=== PATIENT | female | born 1955 | race Caucasian/White ===

== ENCOUNTER 2018-09-20 17:28 | Observation (INO) ==
[2018-09-20] MEDS ORDERED: Naloxone 0.4 MG/ML INJ IVP PRN (17:50)
--- NOTE | 2018-09-20 17:50 | Internal Med History&Physical ---
Addendum entered and electronically signed by Terrence Barber DO 09/20/18 19:05: A/p 8) DM2 Poorly controlled DM2, Glucoses 250-300 fasting per patient history We will hold PO home meds SSI Original Note: <TommiesandroJennifer Campbell - Last Filed: 09/20/18 18:04> Date of Encounter: 09/20/18 Internal Medicine - H&P: HPI History of present illness: Ms. Moreno is a 62 year old female Internal Medicine - H&P: Meds Clopidogrel [Plavix] 75 mg PO DAILY 02/28/16 [History] Levothyroxine [Synthroid] 100 mcg PO DAILY 02/28/16 [History] Rivaroxaban [Xarelto] 20 mg PO DAILY 02/28/16 [History] clonazePAM [Klonopin] 2 mg PO BID PRN 02/28/16 [History] Aspirin 81 mg PO DAILY 03/06/16 [History] Nitroglycerin 0.4 mg PO Q5M PRN 03/06/16 [History] Omeprazole [PriLOSEC] 40 mg PO DAILY@0630 #30 capsule.dr 03/07/16 [Rx] Metoprolol [Lopressor] 25 mg PO BID #60 tablet 07/08/16 [Rx] DULoxetine [Cymbalta] 20 mg PO DAILY 09/17/17 [History] HYDROcodone/Acet 5/325 mg [[place] 5-325 mg] 1 tab PO Q8H PRN 09/17/17 [History] Glimepiride [Amaryl] 1 mg PO DAILY 01/11/18 [History] Isosorbide MONOnitrate (24 HR) [Imdur] 30 mg PO DAILY 01/11/18 [History] Losartan [Cozaar] 25 mg PO DAILY 01/11/18 [History] Allergy/AdvReac Type Severity Reaction Status Date / Time Amoxicillin [From Augmentin] AdvReac Nausea Verified 09/17/17 07:56 clavulanic acid AdvReac Nausea Verified 09/17/17 07:56 [From Augmentin] Sulfa (Sulfonamide AdvReac Nausea Verified 01/11/18 06:45 Antibiotics) trimethoprim [From Bactrim] AdvReac Nausea Verified 09/14/17 12:05 All Systems PM: A 10-system review of systems was performed and is negative for pertinent findings except as documented above in the HPI. - Time Spent With Patient Total time spent is greater than 50% in coordination of care (as documented) at patient's floor/unit and/or counseling patient: - Attending Attestation I examined this patient and my medical decision-making was reviewed with the Resident Physician. I agree with the documented findings, disposition and t reatment plan as described except to the extent set forth below. <Terrence Barber - Last Filed: 09/20/18 18:52> Date of Encounter: 09/20/18 Time of Encounter: 17:50 Internal Medicine - H&P: HPI Chief complaint: Dizziness and chest tightness Admitted From: Direct Admit Plans for Post Hospital Care: Home History of present illness: Ms. Moreno is a 62 year old female with history of CAD status post left heart catheterization with PCI/stent 02/23, diabetes mellitus type 2 which is poorly controlled, hyperlipidemia, morbid obesity, depression and anxiety who was seen by myself (Dr. Barber) and outpatient clinic setting for routine follow-up for chronic conditions today. It was first noted that the patient was not herself w hen she was escorted back to a room in a wheelchair despite usually being able to walk unassisted 2 rooms. The patient was complaining of increased weakness, fatigue and chest tightness with radiation to the back as well as dizziness which started several days ago. She says all in all this has been going on for approximately 3-4 days, however she has been increasingly more fatigued over the past several weeks. She says that she does not specifically have a chest pain, however there is a central substernal tightness, which does radiate somewhat towards her back and it is similar and feeling to previous heart attacks that she has had. It is associated with some shortness of breath with activity, as well as some rapid heart rate and palpitations. She has had no diaphoresis, and she has had no nausea or vomiting. She does mention that her home health nurse mention today that her blood pressure was fine but her heart rate was relatively fast, and overall she just does not feel like herself. When asked, she said that she is concerned that something may be going on in that she is having symptoms which may suggest that her heart is having problems. She denied orthopnea, PND, increased edema in her lower extremities. She also denied cough with sputum production. She has no recent illness to speak of. In addition of this, the patient does say that she has some dizziness and lig htheadedness upon standing which is somewhat new. This is not related to sitting or lying down, but is most specifically related to standing up. She has not had anything resembling passing out, and her her knowledge she has not loss consciousness. She has had no falls associated with this. She does not have any losses of consciousness, or focal muscle weakness or cognitive issues associated with this to her knowledge. When asked if she felt comfortable going home, the patient stated that she did not think that she felt safe going home, and that she thought she needed more inpatient workup. At that time I decided to direct admit the patient for workup of cardiac concerns and near syncope. Past Med Surg Social Fam HX - Past Medical History Medical history: coronary artery disease, DVT, diabetes, fibromyalgia, GERD, hyp erlipidemia, hypertension, myocardial infarction, thyroid disease Additional medical history: DDD. PSORIASIS Psychiatric history: anxiety, depression, panic disorder - Past Surgical History Surgical History: angioplasty/stent, , hysterectomy, orthopedic, other, IVC filter Additional surgical history: CERVICAL SPINE SURGERY x2, IVC FILTER - Social History Smoking Status: Former smoker Smokeless Tobacco Status: No Alcohol use: rarely Drug use: none - Family History Father Living Status: Hx Family Cardiac Disorders: Yes Hx Family Respiratory Disorders: No Hx Family Cancer: Yes Hx Family GI Disorders: Yes Hx Family Endocrine Disorder: Yes Hx Family Autoimmune Disorders: Yes All Systems PM: A 10-system review of systems was performed and is negative for pertinent findings except as documented above in the HPI. Review of systems: Constitutional: Denies fevers, chills, weight loss. Admits to generalized fatigue Head/Neck: Denies INMAN, neck stiffness EENT: Denies vision changes/blurriness, rhinorrhea, congestion, sore throat CVS: Admits to Chest tightness with radiation to back, VARELA. Denies orthopnea, PND Pulm: Denies cough, sputum, hemoptysis, wheezing GI: Denies abdominal pain, nausea, vomiting, diarrhea, constipation, melena, hematemasis : Denies dysuria, urgency, hematuria. Admits to polyuria Heme: Denies ease of bleeding or bruising MSK: Denies joint pain, limited ROM Skin: Denies rashes, ulcers, color changes Endo: Admits to polydipsia and polyuria Neuro: Denies INMAN, paresthesias, focal deficits, ataxia - Constitutional Exam: Gen: Vitals noted. No acute distress. Patient is unsteady upon standing Eyes: anicteric sclerae, moist conjunctivae; no lid-lag; Pupils equal and reactive to light HENT: Atraumatic; oropharynx clear with moist mucous membranes and no mucosal ulcerations; normal hard and soft palate Neck: Trachea midline; supple, no thyromegaly or lymphadenopathy Cardiac: RRR, no murmur, +S1/S2 Pulmonary: CTA bilaterally, no wheezes, rales or rhonchi, equal chest expansion Abdomen: soft, nontender, no guarding. No masses or hepatosplenomegaly MSK: ROM intact, no joint swelling noted Extremities: 1+ BLE edema, nontender calf, no cyanosis or clubbing Skin: Normal temperature, turgor and texture; no rash, ulcers or subcutaneous nodules Neuro: as listed below Psych: Appropriate mood and behavior. A&Ox3 - Neurological Exam Neurological exam: Present: alert, CN II-XII intact, oriented X3, reflexes norm al, no focal deficits, strengths equal and symetr throughout. Absent: motor sensory deficit, pronater drift, facial droop, speech deficit Internal Med - H&P Results - Labs CBC & Chem 7: 09/20/18 18:19 - EKG Data -: EKG Interpreted by Myself (QTc 411, NV 176, QRS 94) EKG shows normal: sinus rhythm, axis (normal), intervals, ST-T waves (Nonspecific ST-T wave changes in lateral leads ) Rate: normal - EKG Data Prior EKG available for review: yes When compared to previous EKG: there is no significant change Interpretation IM: normal EKG - Assessment and Plan (1) Chest pain Current Visit: Yes Status: Acute Assessment and plan: Atypical chest pain, mild. Exertional dyspnea Patient is experiencing chest tightness with radiation to back, Heart score 5 EKG in office demonstrates sinus rhythm with no acute ischemic changes History of CAD, [facility] 02/23 70-80% stenosis in the Distal RCA; 50-60% stenosis in the Mid Circumflex. S/p DENNY to distal RCA Echo 02/21 shows LVEF 50% with essentially normal valvular function Plan Admit to Tele CBC, Trend Trop x3 CXR, Echocardiogram, EKG in AM Consider PE unlikely with hx of Xarelto, however will check d-dimer and consider CTA Chest Consider cardiology consultation for abnormal results if found Qualifiers: Chest pain type: precordial pain Qualified Code(s): R07.2 - Precordial pain (2) Dizziness Current Visit: Yes Status: Acute Assessment and plan: Dizziness vs Near syncope which may be orthostatic Unclear etiology, possibly secondary to orthostatic hypotennsion in setting of volume depletion Patient does report lightheadedness with sitting to standing posture. No other symptoms Neurological exam is unremakable Plan for Echocardiogram, carotid dopplers No head CT indicated as exam non-focal Consider CTA Chest if positive d-dimer (3) Volume depletion Current Visit: Yes Status: Acute Assessment and plan: Suspected volume depletion Will bolus 1L LR,, then give 75mL/hr LR IVF overnight (4) Hypertension Current Visit: Yes Status: Acute Assessment and plan: Patient was hypotensive in clinic and symptomatic, BP 98/68 Home BP meds include Losartan, Lopressor and Imdur Will hold imdur at this time, monitor BP Qualifiers: Hypertension type: essential hypertension Qualified Code(s): I10 - Esse ntial (primary) hypertension (5) CAD (coronary artery disease) Current Visit: No Status: Chronic Assessment and plan: CAD as above Patient with history of stents, most recently in 02/23 Continue ASA, Plavix, Losartan, Lopressor Qualifiers: Coronary Disease-Associated Artery/Lesion type: [place] artery [place] vs. transplanted heart: [place] heart Associated angina: without angina Qualified Code(s): I25.10 - Atherosclerotic heart disease of [place] coronary artery without angina pectoris (6) Hypothyroidism Current Visit: No Status: Acute Assessment and plan: Will check TSH Continue home synthroid Qualifiers: Hypothyroidism type: unspecified Qualified Code(s): E03.9 - Hypothyroidism, unspecified (7) History of DVT (deep vein thrombosis) Current Visit: No Status: Acute Assessment and plan: History of DVTs, continue Xarelto Check D-dimer, if positive consider CTA Chest - Time Spent With Patient Total time spent is greater than 50% in coordination of care (as documented) at patient's floor/unit and/or counseling patient:
[2018-09-20] MEDS ORDERED: Aspirin 325 MG TABLET PO ONE (17:56)
[2018-09-20] MEDS ORDERED: *HR* HYDROcodone/Acet 5/325 mg TABLET PO PRN (17:59)
[2018-09-20] MEDS ORDERED: D5% in Water 1,000 ML IVC PRN (18:02)
[2018-09-20] MEDS ORDERED: *HR* Dextrose 50 % in Water (Syg) 50 ML SYRINGE IVP PRN (18:02)
[2018-09-20] MEDS ORDERED: Dextrose Gel 15 GM/37.5 ML TUBE PO PRN ×2 (18:02)
[2018-09-20 18:33] LABS: Basophils % 0.3 %; Eosinophils # 0.1 K/mcL (0.0-0.6); Eosinophils % 1.2 %; Hematocrit 41.6 % (35.3-44.9); Hemoglobin 14.4 g/dL (11.5-15.4); Immature Granulocytes % 0.3 % (0-4); Lymphocytes # 2.3 K/mcL (0.6-4.6); Mean Corpuscular HGB Conc 34.6 g/dL (31.6-35.5); Mean Corpuscular Hemoglobin 33.5 pg (28.0-33.3); Mean Corpuscular Volume 96.7 fL (83.0-100.0); Monocytes # 0.7 K/mcL (0.0-1.3); Monocytes % 6.8 %; Neutrophils # 6.7 K/mcL (1.6-8.9); Platelet Count 196 K/mcL (140-400); Red Cell Distribution Width 13.1 % (11.5-14.5); Segmented Neutrophils % 68.4 %
[2018-09-20] MEDS ORDERED: Ringers Solution, Lactated 1,000 ML IVC ONE (18:46)
[2018-09-20 18:52] LABS: Alanine Aminotransferase 27 Units/L (7-52); Albumin 3.9 g/dL (3.5-5.7); Albumin/Globulin Ratio 1.2 (1.1-2.2); Alkaline Phosphatase 142 Units/L (34-104); Aspartate Amino Transferase 17 Units/L (13-39); BUN/Creatinine Ratio 17 (6-26); Bilirubin,Total 0.6 mg/dL (0.3-1.0); Blood Urea Nitrogen 23 mg/dL (8-23); Calcium 9.5 mg/dL (8.6-10.3); Carbon Dioxide 25 mEq/L (23-29); Chloride 100 mEq/L (98-107); Globulin 3.2 g/dL (2.4-3.5); Glucose 272 mg/dL (70-105); Magnesium 1.9 mg/dL (1.6-2.6); Osmolality,Calculated 289 (280-300); Potassium 4.1 mEq/L (3.5-5.1); Sodium 133 mEq/L (136-145); Total Protein 7.1 g/dL (6.4-8.9); Troponin I < 0.03 ng/mL (< 0.04); eGFR For Non-African Americans 38 (> 60)
[2018-09-20 18:56] LABS: INR 2.4; Prothrombin Time 27.5 Seconds (9.4-12.1)
[2018-09-20] MEDS ORDERED: Ringers Solution, Lactated 1,000 ML IVC SCH (19:00)
[2018-09-20] MEDS ORDERED: 0.9 % Sodium Chloride 1,000 ML IVC ONE (19:07)
[2018-09-20] MEDS ORDERED: 0.9 % Sodium Chloride 1,000 ML IVC SCH (19:15)
[2018-09-20 19:26] LABS: Thyroid Stimulating Hormone 8.129 mcIU/mL (0.340-5.600)
[2018-09-20] MEDS: Insulin LISPRO 300 UNITS/3 ML VIAL SQ SCH (20:12)
[2018-09-20 20:18] LABS: D-Dimer < 215 ng/mLFEU (0-500)
[2018-09-20 20:53] LABS: Bilirubin,Urine Negative (Negative); Blood,Urine Negative (Negative); Clarity,Urine Clear (Clear); Color,Urine Yellow (Yellow); Glucose,Urine (UA) 250 mg/dL (Normal); Ketones,Urine Negative (Negative); Leukocyte Esterase,Urine Negative (Negative); Nitrite,Urine Negative (Negative); PH,Urine 5.5 pH Units (5.0-8.0); Protein,Urine 30 mg/dL (Neg-Trace); Specific Gravity,Urine 1.022 (1.010-1.025); Urobilinogen,Urine Normal (Normal)
[2018-09-20 21:01] LABS: Bacteria,Urine None Seen per hpf (None-Few); Hyaline Casts,Urine Few per lpf (None-Few); RBC,Urine 0-3 per hpf (0-3); Squamous Epithelial Cell,Urine Many per lpf (None-Few); WBC,Urine 0-3 per hpf (0-3)
[2018-09-20] MEDS ORDERED: Perflutren Lipid Microsphere 1.3 ML in 0.9 % Sodium Chloride 8.7 ML IVP ONE (21:19)
[2018-09-20] MEDS: 0.9 % Sodium Chloride 1,000 ML IVC SCH (22:30)
[2018-09-21] MEDS ORDERED: traMADol 50 MG TABLET PO ONE (01:08)
[2018-09-21 07:06] LABS: Basophils % 0.3 %; Eosinophils # 0.1 K/mcL (0.0-0.6); Eosinophils % 1.3 %; Hematocrit 38.6 % (35.3-44.9); Hemoglobin 12.9 g/dL (11.5-15.4); Immature Granulocytes % 0.3 % (0-4); Lymphocytes % 28.2 %; Mean Corpuscular HGB Conc 33.4 g/dL (31.6-35.5); Mean Corpuscular Hemoglobin 32.6 pg (28.0-33.3); Mean Corpuscular Volume 97.5 fL (83.0-100.0); Mean Platelet Volume 11.1 fL (9.4-12.4); Monocytes # 0.5 K/mcL (0.0-1.3); Monocytes % 7.5 %; Neutrophils # 4.4 K/mcL (1.6-8.9); Platelet Count 165 K/mcL (140-400); Red Blood Count 3.96 M/mcL (3.82-4.97); Red Cell Distribution Width 13.1 % (11.5-14.5); Segmented Neutrophils % 62.4 %
[2018-09-21 07:19] LABS: Potassium 4.1 mEq/L (3.5-5.1)
--- NOTE | 2018-09-21 08:18 | Internal Med Progress Note ---
Hospitalist Progress Note - Encounter Date of Encounter: 09/21/18 Time of Encounter: 10:00 - Subjective Interval History: No acute events, presyncopal episodes less severe today. - Exam Vitals: Temp Pulse Resp BP Pulse Ox 98.4 F 85 16 114/73 94 09/21/18 06:56 09/21/18 06:56 09/21/18 06:56 09/21/18 06:56 09/21/18 06:56 Exam: Gen: Vitals noted. No acute distress. Patient is unsteady upon standing Eyes: anicteric sclerae, moist conjunctivae; no lid-lag; Pupils equal and reactive to light HENT: Atraumatic; oropharynx clear with moist mucous membranes and no mucosal ulcerations; normal hard and soft palate Neck: Trachea midline; supple, no thyromegaly or lymphadenopathy Cardiac: RRR, no murmur, +S1/S2 Pulmonary: CTA bilaterally, no wheezes, rales or rhonchi, equal chest expansion Abdomen: soft, nontender, no guarding. No masses or hepatosplenomegaly MSK: ROM intact, no joint swelling noted Extremities: 1+ BLE edema, nontender calf, no cyanosis or clubbing Skin: Normal temperature, turgor and texture; no rash, ulcers or subcutaneous nodules Neuro: as listed below Psych: Appropriate mood and behavior. A&Ox3 - Assessment and Plan (1) Dizziness Current Visit: Yes Status: Acute Assessment and Plan: Dizziness vs Near syncope which may be orthostatic Unclear etiology, possibly secondary to orthostatic hypotennsion in setting of volume depletion Patient does report lightheadedness with sitting to standing posture. No other symptoms Neurological exam is unremakable She notes having several day history of diarrhea a few days ago that have resolved. Orthostatic VS negative. Carotid doppler negative Echocardiogram pending Continue IV fluids symptoms improving. (2) CAD (coronary artery disease) Current Visit: No Status: Chronic Assessment and Plan: CAD as above Patient with history of stents, most recently in 02/23 Continue ASA, Plavix, Losartan, Lopressor (3) Chest pain Current Visit: Yes Status: Acute Assessment and Plan: Atypical chest pain, mild. Exertional dyspnea Patient is experiencing chest tightness with radiation to back, Heart score 5 EKG in office demonstrates sinus rhythm with no acute ischemic changes History of CAD, [facility] 8/18 70-80% stenosis in the Distal RCA; 50-60% stenosis in the Mid Circumflex. S/p DENNY to distal RCA Echo 02/21 shows LVEF 50% with essentially normal valvular function Serial troponin negative, D-dimer negative; unlikely PE, Echocardiogram pending read, (4) History of DVT (deep vein thrombosis) Current Visit: No Status: Acute Assessment and Plan: History of DVTs, continue Xarelto. No acute DVT likely given negative D-dimer. (5) Hypothyroidism Current Visit: No Status: Acute Assessment and Plan: Will check TSH Continue home synthroid (6) Hypertension Current Visit: Yes Status: Acute Assessment and Plan: Patient was hypotensive in clinic and symptomatic, BP 98/68 Home BP meds include Losartan, Lopressor and Imdur Will hold imdur at this time, monitor BP (7) Volume depletion Current Visit: Yes Status: Acute Assessment and Plan: Suspected volume depletion Will bolus 1L LR,, then give 75mL/hr LR IVF overnight - Time Spent with Patient Total time spent is greater than 50% in coordination of care (as documented) at patient's floor/unit and/or counseling patient: Internal Medicine: Result - Labs CBC & Chem 7: 09/21/18 06:07 09/21/18 06:07 Labs: Short CBC 09/20/18 09/21/18 Range/Units 18:19 06:07 WBC 9.8 7.1 (4.3-11.1) K/mcL Hgb 14.4 12.9 D (11.5-15.4) g/dL Hct 41.6 38.6 (35.3-44.9) % Plt Count 196 165 (140-400) K/mcL Neutrophils # 6.7 4.4 (1.6-8.9) K/mcL BMP 09/20/18 09/21/18 18:19 06:07 Sodium 133 L 135 L Potassium 4.1 4.1 Chloride 100 104 Carbon Dioxide 25 23 BUN 23 25 H Creatinine 1.39 H 1.17 Glucose 272 H 279 H Calcium 9.5 9.0 Cardiac Enzymes 09/20/18 09/21/18 09/21/18 Range/Units 18:19 00:05 06:07 Troponin I < 0.03 < 0.03 < 0.03 (< 0.04) ng/mL Liver Function 03/15/19 Range/Units 18:19 Total Bilirubin 0.6 (0.3-1.0) mg/dL AST 17 (13-39) Units/L ALT 27 (7-52) Units/L Alkaline Phosphatase 142 H (34-104) Units/L Albumin 3.9 (3.5-5.7) g/dL Urine 09/20/18 Range/Units 20:05 Urine Color Yellow (Yellow) Urine Clarity Clear (Clear) Urine pH 5.5 (5.0-8.0) pH Units Ur Specific [place] 1.022 (1.010-1.025) Urine Protein 30 H (Neg-Trace) mg/dL Urine Glucose (UA) 250 H (Normal) mg/dL - ABG Interpretation ABG results: PT/INR, D-dimer PT 27.5 Seconds (9.4-12.1) H 09/20/18 18:19 D-Dimer < 215 ng/mLFEU (0-500) 09/20/18 18:19 Consult Discharge Plan - Plan Referrals: Terrence Barber DO [Resident] - (2) CAD (coronary artery disease) Qualifiers: Coronary Disease-Associated Artery/Lesion type: [place] artery [place] vs. transplanted heart: [place] heart Associated angina: without angina Qualified Code(s): I25.10 - Atherosclerotic heart disease of [place] coronary artery without angina pectoris (3) Chest pain Qualifiers: Chest pain type: precordial pain Qualified Code(s): R07.2 - Precordial pain (5) Hypothyroidism Qualifiers: Hypothyroidism type: unspecified Qualified Code(s): E03.9 - Hypothyroidism, unspecified (6) Hypertension Qualifiers: Hypertension type: essential hypertension Qualified Code(s): I10 - Essential (primary) hypertension
[2018-09-21] MEDS: 0.9 % Sodium Chloride 1,000 ML IVC SCH ×2 (09:11→18:10)
[2018-09-21] MEDS: *HR* Rivaroxaban 10 MG TABLET PO SCH (09:13)
[2018-09-21] MEDS: Insulin LISPRO 300 UNITS/3 ML VIAL SQ SCH ×4 (09:15→20:38)
[2018-09-22] MEDS: 0.9 % Sodium Chloride 1,000 ML IVC SCH (04:27)
[2018-09-22 06:17] LABS: Estimated Average Glucose 235 mg/dl; Hemoglobin A1C 9.8 %
[2018-09-22] MEDS: Insulin LISPRO 300 UNITS/3 ML VIAL SQ SCH ×2 (08:17→12:02)
[2018-09-22] MEDS: *HR* Rivaroxaban 10 MG TABLET PO SCH (08:18)
[2018-09-22 11:29] VITALS: BP 112/77
--- NOTE | 2018-09-22 11:42 | Discharge Summary ---
Orders not resulted at time of discharge: Pending orders 09/21/18 06:00 ECG 12 lead ECG [ECG] AM 0600 Date of Encounter: 09/22/18 Time of Encounter: 11:39 - Discharge Diagnosis (1) Chest pain Priority: Primary Status: Acute Qualifiers: Chest pain type: precordial pain Qualified Code(s): R07.2 - Precordial pain (2) Dizziness Priority: Secondary Status: Acute (3) CAD (coronary artery disease) Priority: Secondary Status: Chronic Qualifiers: Coronary Disease-Associated Artery/Lesion type: [place] artery [place] vs. transplanted heart: [place] heart Associated angina: without angina Qualified Code(s): I25.10 - Atherosclerotic heart disease of [place] coronary artery without angina pectoris (4) History of DVT (deep vein thrombosis) Priority: Secondary Status: Acute (5) Hypothyroidism Priority: Secondary Status: Acute Qualifiers: Hypothyroidism type: unspecified Qualified Code(s): E03.9 - Hypothyroidism, unspecified (6) Hypertension Priority: Secondary Status: Acute Qualifiers: Hypertension type: essential hypertension Qualified Code(s): I10 - Essential (primary) hypertension (7) Volume depletion Priority: Secondary Status: Acute Hospital course: Ms. Moreno is a 62 year old female with history of CAD status post left heart catheterization with PCI/stent 02/23, diabetes mellitus type 2 which is poorly controlled, hyperlipidemia, morbid obesity, depression and anxiety who was seen by myself (Dr. Barber) and outpatient clinic setting for routine follow-up for chronic conditions today. It was first noted that the patient was not herself when she was escorted back to a room in a wheelchair despite usually being able to walk unassisted 2 rooms. The patient was complaining of increased weakness, fatigue and chest tightness with radiation to the back as well as dizziness which started several days ago. She says all in all this has been going on for approximately 3-4 days, however she has been increasingly more fatigued over the past several weeks. She says that she does not specifically have a chest pain, however there is a central substernal tightness, which does radiate somewhat towards her back and it is similar and feeling to previous heart attacks that she has had. It is associated with some shortness of breath with activity, as well as some rapid heart rate and palpitations. She has had no diaphoresis, and she has had no nausea or vomiting. She does mention that her home health nurse mention today that her blood pressure was fine but her heart rate was relatively fast, and overall she just does not feel like herself. When asked, she said that she is concerned that something may be going on in that she is having symptoms which may suggest that her heart is having problems. She denied orthopnea, PND, increased edema in her lower extremities. She also denied cough with sputum production. She has no recent illness to speak of. In addition of this, the patient does say that she has some dizziness and lightheadedness upon standing which is somewhat new. This is not related to sitting or lying down, but is most specifically related to standing up. She has not had anything resembling passing out, and her her knowledge she has not loss consciousness. She has had no falls associated with this. She does not have any losses of consciousness, or focal muscle weakness or cognitive issues associated with this to her knowledge. When asked if she felt comfortable going home, the patient stated that she did not think that she felt safe going home, and that she thought she needed more inpatient workup. At that time I decided to direct admit the patient for workup of cardiac concerns and near syncope. Hospital Course: She had unremarkable chest pain and presyncopal workup. Serial troponin was negative. There were no ST/T wave changes, echocardiogram was unremarkable. Carotid ultrasound did not show any abnormal findings. D-dimer was negative ruling out pulmonary embolism. Patient was dehydrated on presentation, she was given IV fluids and symptoms did resolve. She had good appetite, labs did show slight bump in creatinine that resolved with IV fluids. She was discharged home in stable condition. - Time Spent with Patient Total time spent providing and/or coordinating discharge services: - Discharge Medications Prescriptions: Continue Clopidogrel [Plavix] 75 mg PO DAILY Rivaroxaban [Xarelto] 20 mg PO DAILY Levothyroxine [Synthroid] 100 mcg PO DAILY Nitroglycerin 0.4 mg PO Q5M PRN PRN Reason: Chest Pain Aspirin 81 mg PO DAILY Omeprazole [PriLOSEC] 40 mg PO DAILY@0630 #30 capsule. Metoprolol [Lopressor] 25 mg PO BID #60 tablet HYDROcodone/Acet 5/325 mg [[place] 5-325 mg] 1 tab PO Q8H PRN PRN Reason: Pain DULoxetine [Cymbalta] 40 mg PO DAILY Losartan [Cozaar] 50 mg PO DAILY Isosorbide MONOnitrate (24 HR) [Imdur] 30 mg PO DAILY Glimepiride [Amaryl] 6 mg PO DAILY Loratadine [Allergy Relief] 10 mg PO DAILY clonazePAM [Klonopin] 0.5 mg PO HS PRN PRN Reason: Anxiety Home Medications: Clopidogrel [Plavix] 75 mg PO DAILY 02/28/16 [History] Levothyroxine [Synthroid] 100 mcg PO DAILY 02/28/16 [History] Rivaroxaban [Xarelto] 20 mg PO DAILY 02/28/16 [History] Aspirin 81 mg PO DAILY 03/06/16 [History] Nitroglycerin 0.4 mg PO Q5M PRN 03/06/16 [History] Omeprazole [PriLOSEC] 40 mg PO DAILY@0630 #30 capsule. 03/07/16 [Rx] Metoprolol [Lopressor] 25 mg PO BID #60 tablet 07/08/16 [Rx] DULoxetine [Cymbalta] 40 mg PO DAILY 09/17/17 [History] HYDROcodone/Acet 5/325 mg [[place] 5-325 mg] 1 tab PO Q8H PRN 09/17/17 [History] Glimepiride [Amaryl] 6 mg PO DAILY 01/11/18 [History] Isosorbide MONOnitrate (24 HR) [Imdur] 30 mg PO DAILY 01/11/18 [History] Losartan [Cozaar] 50 mg PO DAILY 01/11/18 [History] Loratadine [Allergy Relief] 10 mg PO DAILY 09/20/18 [History] clonazePAM [Klonopin] 0.5 mg PO HS PRN 09/20/18 [History] Allergies/Adverse Reactions: Allergy/AdvReac Type Severity Reaction Status Date / Time Amoxicillin [From Augmentin] AdvReac Nausea Verified 09/17/17 07:56 clavulanic acid AdvReac Nausea Verified 09/17/17 07:56 [From Augmentin] Sulfa (Sulfonamide AdvReac Nausea Verified 01/11/18 06:45 Antibiotics) trimethoprim [From Bactrim] AdvReac Nausea Verified 09/14/17 12:05 Date of admission: 09/20/18 18:04 Discharging clinician: Elsi Pearce - Constitutional Vitals: Temp Pulse Resp BP Pulse Ox 98.2 F 63 20 112/77 97 09/22/18 11:28 09/22/18 11:28 09/22/18 11:28 09/22/18 11:28 09/22/18 11:28 Exam: Gen: Vitals noted. No acute distress. Patient is unsteady upon standing Eyes: anicteric sclerae, moist conjunctivae; no lid-lag; Pupils equal and reactive to light HENT: Atraumatic; oropharynx clear with moist mucous membranes and no mucosal ulcerations; normal hard and soft palate Neck: Trachea midline; supple, no thyromegaly or lymphadenopathy Cardiac: RRR, no murmur, +S1/S2 Pulmonary: CTA bilaterally, no wheezes, rales or rhonchi, equal chest expansion Abdomen: soft, nontender, no guarding. No masses or hepatosplenomegaly MSK: ROM intact, no joint swelling noted Extremities: 1+ BLE edema, nontender calf, no cyanosis or clubbing Skin: Normal temperature, turgor and texture; no rash, ulcers or subcutaneous nodules Neuro: as listed below Psych: Appropriate mood and behavior. A&Ox3 - Patient Status Disposition: Home, Self-Care Condition: Good Functional capacity at discharge: independent ambulation Overall status at discharge: patient is back to baseline - Discharge Instructions Follow Up With: Terrence Barber DO [Resident] - - Diet and Activity Activity: increase activity as tolerated Diet: advance to your usual diet
--- NOTE | 2018-09-26 18:07 | Electrocardiograph Report ---
[place] [address] Test Date: 2018-09-21 Pat Name: Vida Moreno Department: 113 Room: 3B16 Gender: F [employer]: : [id number] Requested By: Terrence Barber Order Number: [id number] Reading MD: Dede Clark Measurements Intervals [place] Rate: 82 P: 66 W[place]: 188 QRS: 44 QRSD: 97 T: 74 QT: 361 QTc: 400 Interpretive Statements SINUS RHYTHM LOW QRS VOLTAGE IN PRECORDIAL LEADS NONSPECIFIC ST-WAVE ABNORMALITY Electronically Signed On 09-26-2018 18:05:30 EDT by Dede Clark
== END 2018-09-22 13:22 | disposition home or self-care (01) ==
LOC: 3BNU
PROVIDERS: ADMIT Student in an Organized Health Care Education/Training Program; ATTEND Student in an Organized Health Care Education/Training Program

== ENCOUNTER 2021-02-09 14:33 | Observation (INO) ==
[2021-02-09 15:32] LABS: Basophils % 0.2 %; Eosinophils # 0.1 K/mcL (0.0-0.6); Eosinophils % 0.9 %; Hematocrit 44.7 % (35.3-44.9); Hemoglobin 14.9 g/dL (11.5-15.4); Immature Granulocytes % 0.2 % (0-4); Lymphocytes # 2.6 K/mcL (0.6-4.6); Lymphocytes % 24.5 %; Mean Corpuscular HGB Conc 33.3 g/dL (31.6-35.5); Mean Corpuscular Hemoglobin 32.1 pg (28.0-33.3); Mean Corpuscular Volume 96.3 fL (83.0-100.0); Mean Platelet Volume 11.4 fL (9.4-12.4); Monocytes # 0.6 K/mcL (0.0-1.3); Neutrophils # 7.2 K/mcL (1.6-8.9); Platelet Count 186 K/mcL (140-400); Red Blood Count 4.64 M/mcL (3.82-4.97); Red Cell Distribution Width 13.2 % (11.5-14.5); Segmented Neutrophils % 68.2 %; White Blood Count 10.6 K/mcL (4.3-11.1)
[2021-02-09] MEDS ORDERED: Aspirin 81 MG TAB.CHEW PO ONE (15:37)
[2021-02-09 15:45] LABS: BUN/Creatinine Ratio 17 (6-26); Blood Urea Nitrogen 21 mg/dL (8-23); Calcium 9.4 mg/dL (8.6-10.3); Carbon Dioxide 25 mEq/L (23-29); Chloride 102 mEq/L (98-107); Glucose 177 mg/dL (70-105); Osmolality,Calculated 289 (280-300); Potassium 3.8 mEq/L (3.5-5.1); Sodium 136 mEq/L (136-145); Troponin I < 0.03 ng/mL (< 0.04); eGFR For African Americans 54 (> 60); eGFR For Non-African Americans 45 (> 60)
[2021-02-09] MEDS ORDERED: Naloxone 0.4 MG/ML INJ IVP PRN (17:09)
[2021-02-09] MEDS ORDERED: Melatonin 3 MG TABLET PO PRN (17:09)
[2021-02-09] MEDS ORDERED: Ondansetron 4 MG/2 ML VIAL IVP PRN (17:09)
[2021-02-09] MEDS ORDERED: Acetaminophen 325 MG TABLET PO PRN (17:09)
[2021-02-09] MEDS ORDERED: D5% in Water 1,000 ML IVC PRN (17:16)
[2021-02-09] MEDS ORDERED: *HR* Dextrose 50 % in Water (Vial) 50 ML VIAL IVP PRN (17:16)
[2021-02-09] MEDS ORDERED: Dextrose Gel 15 GM/37.5 ML TUBE PO PRN ×2 (17:16)
[2021-02-09] MEDS ORDERED: Perflutren Lipid Microsphere 1.3 ML in 0.9 % Sodium Chloride 8.7 ML IVP PRN (17:20)
[2021-02-09 17:32] LABS: Chol/HDL Ratio 4.3 (0-4.9); Cholesterol 152 mg/dL (< 200); HDL Cholesterol 35 mg/dL (40-59); LDL Cholesterol,Calculated 73 mg/dL (< 100); Triglycerides 220 mg/dL (< 150)
[2021-02-09] MEDS ORDERED: Insulin DETEMIR 100 UNIT/ML X5UNITS SUBQ SCH (21:00)
[2021-02-09] MEDS: *HR* HYDROcodone/Acet 5/325 mg TABLET PO PRN (21:01)
[2021-02-10 01:13] LABS: Basophils % 0.4 %; Eosinophils # 0.1 K/mcL (0.0-0.6); Eosinophils % 1.2 %; Hematocrit 41.2 % (35.3-44.9); Hemoglobin 13.8 g/dL (11.5-15.4); Immature Granulocytes % 0.2 % (0-4); Lymphocytes # 2.7 K/mcL (0.6-4.6); Mean Corpuscular HGB Conc 33.5 g/dL (31.6-35.5); Mean Corpuscular Hemoglobin 32.2 pg (28.0-33.3); Mean Corpuscular Volume 96.3 fL (83.0-100.0); Mean Platelet Volume 10.9 fL (9.4-12.4); Monocytes # 0.5 K/mcL (0.0-1.3); Monocytes % 6.6 %; Neutrophils # 4.7 K/mcL (1.6-8.9); Platelet Count 158 K/mcL (140-400); Red Blood Count 4.28 M/mcL (3.82-4.97); Red Cell Distribution Width 13.4 % (11.5-14.5); Segmented Neutrophils % 58.6 %; White Blood Count 8.1 K/mcL (4.3-11.1)
[2021-02-10 01:26] LABS: INR 1.4; Prothrombin Time 16.5 Seconds (9.4-12.1)
[2021-02-10 01:34] LABS: Estimated Average Glucose 200 mg/dl; Hemoglobin A1C 8.6 %
[2021-02-10 01:37] LABS: Magnesium 1.7 mg/dL (1.6-2.6); Phosphorous 4.1 mg/dL (2.7-4.5); Potassium 3.5 mEq/L (3.5-5.1)
[2021-02-10 01:51] LABS: Thyroid Stimulating Hormone 7.842 mcIU/mL (0.340-5.600)
[2021-02-10] MEDS ORDERED: Regadenoson 0.4 MG/5 ML SYRINGE IVP ONE (06:25)
[2021-02-10] MEDS ORDERED: carvediloL 6.25 MG TABLET PO SCH (08:00)
[2021-02-10] MEDS ORDERED: Aspirin 81 MG TAB.CHEW PO SCH (09:00)
[2021-02-10] MEDS ORDERED: clonazePAM 0.5 MG TABLET PO PRN (09:01)
[2021-02-10] MEDS ORDERED: Isosorbide MONOnitrate (24 HR) 30 MG TAB.ER.24H PO SCH (09:15)
[2021-02-10] MEDS: Insulin LISPRO 300 UNITS/3 ML VIAL SUBQ SCH ×2 (09:57→12:27)
[2021-02-10] MEDS: *HR* HYDROcodone/Acet 5/325 mg TABLET PO PRN (11:04)
[2021-02-10 11:42] VITALS: BP 124/84; PULSE 81; TEMP 98.2; O2SAT 95
[2021-02-10] MEDS ORDERED: *HR* Rivaroxaban 10 MG TABLET PO SCH (17:00)
[2021-02-10] MEDS ORDERED: Insulin DETEMIR 100 UNIT/ML X5UNITS SUBQ SCH (21:00)
== END 2021-02-10 14:50 | disposition home or self-care (01) ==
LOC: EMEROOARM 14:33 → 3BNU 14:33 → SUATTDRO 16:39 → 3BNU 17:27
PROVIDERS: ADMIT Internal Medicine; ATTEND Internal Medicine

== ENCOUNTER 2021-05-24 12:59 | Inpatient (IN) ==
[2021-05-24 15:02] LABS: Basophils % 0.2 %; Hemoglobin 12.8 g/dL (11.5-15.4); Red Cell Distribution Width 14.2 % (11.5-14.5)
[2021-05-24 15:04] LABS: Hematocrit 39.1 % (35.3-44.9); Immature Granulocytes % 0.5 % (0-4); Lymphocytes # 0.9 K/mcL (0.6-4.6); Lymphocytes % 14.1 %; Mean Corpuscular HGB Conc 32.7 g/dL (31.6-35.5); Mean Corpuscular Hemoglobin 31.8 pg (28.0-33.3); Mean Platelet Volume 11.9 fL (9.4-12.4); Monocytes # 0.3 K/mcL (0.0-1.3); Monocytes % 4.6 %; Neutrophils # 5.1 K/mcL (1.6-8.9); Platelet Count 114 K/mcL (140-400); Red Blood Count 4.03 M/mcL (3.82-4.97); Segmented Neutrophils % 80.6 %; White Blood Count 6.3 K/mcL (4.3-11.1)
[2021-05-24 15:24] LABS: Alanine Aminotransferase 28 Units/L (7-52); Albumin 3.4 g/dL (3.5-5.7); Albumin/Globulin Ratio 1.2 (1.1-2.2); Alkaline Phosphatase 100 Units/L (34-104); Aspartate Amino Transferase 30 Units/L (13-39); BUN/Creatinine Ratio 12 (6-26); Bilirubin,Total 0.6 mg/dL (0.3-1.0); Blood Urea Nitrogen 14 mg/dL (8-23); Calcium 7.5 mg/dL (8.6-10.3); Carbon Dioxide 19 mEq/L (23-29); Chloride 98 mEq/L (98-107); Globulin 2.8 g/dL (2.4-3.5); Glucose 347 mg/dL (70-105); Osmolality,Calculated 280 (280-300); Potassium 4.2 mEq/L (3.5-5.1); Sodium 128 mEq/L (136-145); Total Protein 6.2 g/dL (6.4-8.9); Troponin I < 0.03 ng/mL (< 0.04); eGFR For African Americans 55 (> 60); eGFR For Non-African Americans 46 (> 60)
[2021-05-24 15:42] LABS: Influenza A PCR Negative (Negative); Influenza B PCR Negative (Negative); Resp. Syncytial Virus PCR Negative (Negative)
[2021-05-24 16:02] LABS: SARS-CoV-2 by PCR (In House) Positive (Negative)
[2021-05-24] MEDS ORDERED: Dexamethasone Sodium Phos/PF 10 MG/ML VIAL IVP ONE (16:44)
[2021-05-24] MEDS ORDERED: Acetaminophen 325 MG TABLET PO PRN (16:53)
[2021-05-24] MEDS ORDERED: Naloxone 0.4 MG/ML INJ IVP PRN (16:53)
[2021-05-24] MEDS ORDERED: Melatonin 3 MG TABLET PO PRN (16:53)
[2021-05-24] MEDS ORDERED: clonazePAM 0.5 MG TABLET PO PRN (17:01)
[2021-05-24] MEDS ORDERED: D5% in Water 1,000 ML IVC PRN (17:47)
[2021-05-24] MEDS ORDERED: Dextrose Gel 15 GM/37.5 ML TUBE PO PRN ×2 (17:47)
[2021-05-24] MEDS ORDERED: *HR* Dextrose 50 % in Water (Syg) 50 ML SYRINGE IVP PRN (17:47)
[2021-05-24] MEDS ORDERED: Benzonatate 100 MG CAPSULE PO PRN (17:59)
[2021-05-24] MEDS: Insulin LISPRO 300 UNITS/3 ML VIAL SUBQ SCH (18:11)
[2021-05-24] MEDS ORDERED: Remdesivir 200 MG in 0.9 % Sodium Chloride 100 ML IVPB ONE (20:00)
[2021-05-24] MEDS: Insulin DETEMIR 100 UNIT/ML X5UNITS SUBQ SCH (22:09)
[2021-05-24] MEDS: *HR* HYDROcodone/Acet 5/325 mg TABLET PO PRN (23:11)
[2021-05-25 06:21] LABS: Hematocrit 38.5 % (35.3-44.9); Hemoglobin 13.1 g/dL (11.5-15.4); Immature Granulocytes % 0.4 % (0-4); Lymphocytes # 0.6 K/mcL (0.6-4.6); Lymphocytes % 12.6 %; Mean Corpuscular Hemoglobin 32.4 pg (28.0-33.3); Mean Corpuscular Volume 95.3 fL (83.0-100.0); Monocytes # 0.2 K/mcL (0.0-1.3); Monocytes % 5.1 %; Neutrophils # 3.9 K/mcL (1.6-8.9); Platelet Count 126 K/mcL (140-400); Red Blood Count 4.04 M/mcL (3.82-4.97); Red Cell Distribution Width 14.1 % (11.5-14.5); Segmented Neutrophils % 81.9 %; White Blood Count 4.8 K/mcL (4.3-11.1)
[2021-05-25 06:46] LABS: Albumin 3.5 g/dL (3.5-5.7); Albumin/Globulin Ratio 1.2 (1.1-2.2); Bilirubin,Direct 0.1 mg/dL (0.0-0.2); Bilirubin,Indirect 0.4 mg/dL (0.0-1.0); Bilirubin,Total 0.5 mg/dL (0.3-1.0); Total Protein 6.5 g/dL (6.4-8.9)
[2021-05-25 06:48] LABS: BUN/Creatinine Ratio 19 (6-26); Blood Urea Nitrogen 18 mg/dL (8-23); Calcium 7.8 mg/dL (8.6-10.3); Carbon Dioxide 20 mEq/L (23-29); Chloride 100 mEq/L (98-107); Glucose 370 mg/dL (70-105); Magnesium 1.7 mg/dL (1.6-2.6); Osmolality,Calculated 291 (280-300); Phosphorous 2.2 mg/dL (2.7-4.5); Potassium 4.1 mEq/L (3.5-5.1); Sodium 132 mEq/L (136-145); eGFR For African Americans > 60 (> 60); eGFR For Non-African Americans 58 (> 60)
[2021-05-25] MEDS ORDERED: Pantoprazole 40 MG VIAL IVP SCH (09:00)
[2021-05-25] MEDS: *HR* Rivaroxaban 10 MG TABLET PO SCH (10:21)
[2021-05-25] MEDS: Aspirin 81 MG TAB.CHEW PO SCH (10:21)
[2021-05-25] MEDS: carvediloL 6.25 MG TABLET PO SCH ×2 (10:21→19:28)
[2021-05-25] MEDS: Insulin LISPRO 300 UNITS/3 ML VIAL SUBQ SCH ×3 (10:22→19:26)
[2021-05-25] MEDS: clonazePAM 0.5 MG TABLET PO SCH (13:09)
[2021-05-25] MEDS: Insulin DETEMIR 100 UNIT/ML X5UNITS SUBQ SCH ×2 (13:10→21:29)
[2021-05-25] MEDS: Isosorbide MONOnitrate (24 HR) 30 MG TAB.ER.24H PO SCH (13:10)
[2021-05-25] MEDS: Azithromycin 250 MG TABLET PO SCH (19:28)
[2021-05-25] MEDS: *HR* HYDROcodone/Acet 5/325 mg TABLET PO PRN (21:29)
[2021-05-25] MEDS: cefTRIAXone 1,000 MG in Water for inj. (sterile) 10 ML IVP SCH (21:30)
[2021-05-25] MEDS: Remdesivir 100 MG in 0.9 % Sodium Chloride 100 ML IVPB SCH (21:43)
[2021-05-26 02:54] LABS: Basophils % 0.2 %; Hematocrit 39.2 % (35.3-44.9); Hemoglobin 12.7 g/dL (11.5-15.4); Immature Granulocytes % 0.3 % (0-4); Lymphocytes # 0.8 K/mcL (0.6-4.6); Mean Corpuscular HGB Conc 32.4 g/dL (31.6-35.5); Mean Corpuscular Hemoglobin 31.5 pg (28.0-33.3); Mean Corpuscular Volume 97.3 fL (83.0-100.0); Mean Platelet Volume 11.2 fL (9.4-12.4); Monocytes # 0.5 K/mcL (0.0-1.3); Monocytes % 6.8 %; Neutrophils # 5.3 K/mcL (1.6-8.9); Platelet Count 157 K/mcL (140-400); Red Blood Count 4.03 M/mcL (3.82-4.97); Red Cell Distribution Width 14.1 % (11.5-14.5); Segmented Neutrophils % 80.7 %; White Blood Count 6.6 K/mcL (4.3-11.1)
[2021-05-26 03:11] LABS: BUN/Creatinine Ratio 24 (6-26); Blood Urea Nitrogen 23 mg/dL (8-23); Calcium 7.5 mg/dL (8.6-10.3); Carbon Dioxide 21 mEq/L (23-29); Chloride 103 mEq/L (98-107); Glucose 390 mg/dL (70-105); Osmolality,Calculated 294 (280-300); Sodium 132 mEq/L (136-145); eGFR For African Americans > 60 (> 60); eGFR For Non-African Americans 58 (> 60)
[2021-05-26 03:12] LABS: Albumin 3.3 g/dL (3.5-5.7); Albumin/Globulin Ratio 1.2 (1.1-2.2); Bilirubin,Direct 0.1 mg/dL (0.0-0.2); Bilirubin,Indirect 0.3 mg/dL (0.0-1.0); Bilirubin,Total 0.4 mg/dL (0.3-1.0); Globulin 2.8 g/dL (2.4-3.5); Total Protein 6.1 g/dL (6.4-8.9)
[2021-05-26 03:42] LABS: Platelet Estimate Normal (Normal)
[2021-05-26] MEDS: carvediloL 6.25 MG TABLET PO SCH ×2 (08:08→17:20)
[2021-05-26] MEDS: clonazePAM 0.5 MG TABLET PO SCH (08:08)
[2021-05-26] MEDS: Isosorbide MONOnitrate (24 HR) 30 MG TAB.ER.24H PO SCH (08:09)
[2021-05-26] MEDS: *HR* Rivaroxaban 10 MG TABLET PO SCH (08:09)
[2021-05-26] MEDS: Aspirin 81 MG TAB.CHEW PO SCH (08:09)
[2021-05-26] MEDS: Insulin DETEMIR 100 UNIT/ML X5UNITS SUBQ SCH ×2 (10:54→20:37)
[2021-05-26] MEDS: Insulin LISPRO 300 UNITS/3 ML VIAL SUBQ SCH ×3 (10:58→18:44)
[2021-05-26] MEDS: Azithromycin 250 MG TABLET PO SCH (17:19)
[2021-05-26] MEDS: cefTRIAXone 1,000 MG in Water for inj. (sterile) 10 ML IVP SCH (17:20)
[2021-05-26] MEDS: *HR* LORazepam 2 MG/ML VIAL IVP PRN (20:34)
[2021-05-26] MEDS: Remdesivir 100 MG in 0.9 % Sodium Chloride 100 ML IVPB SCH (20:35)
[2021-05-27 05:12] LABS: Basophils % 0.1 %; Hematocrit 38.7 % (35.3-44.9); Hemoglobin 13.3 g/dL (11.5-15.4); Immature Granulocytes % 0.4 % (0-4); Lymphocytes # 0.9 K/mcL (0.6-4.6); Lymphocytes % 11.7 %; Mean Corpuscular HGB Conc 34.4 g/dL (31.6-35.5); Mean Corpuscular Hemoglobin 32.2 pg (28.0-33.3); Mean Corpuscular Volume 93.7 fL (83.0-100.0); Mean Platelet Volume 11.1 fL (9.4-12.4); Monocytes # 0.5 K/mcL (0.0-1.3); Monocytes % 6.8 %; Neutrophils # 5.9 K/mcL (1.6-8.9); Platelet Count 199 K/mcL (140-400); Red Blood Count 4.13 M/mcL (3.82-4.97); White Blood Count 7.3 K/mcL (4.3-11.1)
[2021-05-27 05:26] LABS: Alanine Aminotransferase 40 Units/L (7-52); Albumin 3.2 g/dL (3.5-5.7); Albumin/Globulin Ratio 1.1 (1.1-2.2); Alkaline Phosphatase 92 Units/L (34-104); Aspartate Amino Transferase 37 Units/L (13-39); BUN/Creatinine Ratio 36 (6-26); Bilirubin,Direct 0.1 mg/dL (0.0-0.2); Bilirubin,Indirect 0.3 mg/dL (0.0-1.0); Bilirubin,Total 0.4 mg/dL (0.3-1.0); Blood Urea Nitrogen 30 mg/dL (8-23); Calcium 7.8 mg/dL (8.6-10.3); Carbon Dioxide 24 mEq/L (23-29); Chloride 104 mEq/L (98-107); Globulin 2.9 g/dL (2.4-3.5); Glucose 294 mg/dL (70-105); Osmolality,Calculated 295 (280-300); Sodium 134 mEq/L (136-145); Total Protein 6.1 g/dL (6.4-8.9); eGFR For African Americans > 60 (> 60); eGFR For Non-African Americans > 60 (> 60)
[2021-05-27 06:12] LABS: Platelet Estimate Normal (Normal); Reactive Lymphocytes Present (Not Present)
[2021-05-27] MEDS: clonazePAM 0.5 MG TABLET PO SCH (10:00)
[2021-05-27] MEDS: Isosorbide MONOnitrate (24 HR) 30 MG TAB.ER.24H PO SCH (10:00)
[2021-05-27] MEDS: Aspirin 81 MG TAB.CHEW PO SCH (10:00)
[2021-05-27] MEDS: carvediloL 6.25 MG TABLET PO SCH ×2 (10:00→17:30)
[2021-05-27] MEDS: *HR* Rivaroxaban 10 MG TABLET PO SCH (10:00)
[2021-05-27] MEDS: Insulin LISPRO 300 UNITS/3 ML VIAL SUBQ SCH ×3 (10:02→17:30)
[2021-05-27] MEDS: Insulin DETEMIR 100 UNIT/ML X5UNITS SUBQ SCH ×2 (10:02→19:45)
[2021-05-27] MEDS: Dexamethasone Sodium Phos/PF 10 MG/ML VIAL IVP SCH (10:03)
[2021-05-27] MEDS: *HR* HYDROcodone/Acet 5/325 mg TABLET PO PRN (15:32)
[2021-05-27 15:43] LABS: C-Reactive Protein 34 mg/L (Less than 10)
[2021-05-27] MEDS: Azithromycin 250 MG TABLET PO SCH (17:30)
[2021-05-27] MEDS: cefTRIAXone 1,000 MG in Water for inj. (sterile) 10 ML IVP SCH (17:30)
[2021-05-27] MEDS: Remdesivir 100 MG in 0.9 % Sodium Chloride 100 ML IVPB SCH (19:46)
[2021-05-27] MEDS ORDERED: *HR* LORazepam 0.5 MG TABLET PO PRN (23:21)
[2021-05-27] MEDS: *HR* LORazepam 2 MG/ML VIAL IVP PRN (23:25)
[2021-05-28 03:23] LABS: Basophils % 0.2 %; Hematocrit 38.6 % (35.3-44.9); Hemoglobin 13.1 g/dL (11.5-15.4); Immature Granulocytes % 0.4 % (0-4); Lymphocytes # 0.8 K/mcL (0.6-4.6); Lymphocytes % 8.8 %; Mean Corpuscular HGB Conc 33.9 g/dL (31.6-35.5); Mean Corpuscular Hemoglobin 32.2 pg (28.0-33.3); Mean Corpuscular Volume 94.8 fL (83.0-100.0); Mean Platelet Volume 11.2 fL (9.4-12.4); Monocytes # 0.6 K/mcL (0.0-1.3); Monocytes % 5.8 %; Neutrophils # 8.1 K/mcL (1.6-8.9); Platelet Count 214 K/mcL (140-400); Red Blood Count 4.07 M/mcL (3.82-4.97); Segmented Neutrophils % 84.8 %; White Blood Count 9.6 K/mcL (4.3-11.1)
[2021-05-28 03:39] LABS: Albumin 3.1 g/dL (3.5-5.7); BUN/Creatinine Ratio 33 (6-26); Bilirubin,Direct 0.2 mg/dL (0.0-0.2); Bilirubin,Indirect 0.4 mg/dL (0.0-1.0); Bilirubin,Total 0.6 mg/dL (0.3-1.0); Blood Urea Nitrogen 28 mg/dL (8-23); Calcium 7.7 mg/dL (8.6-10.3); Carbon Dioxide 24 mEq/L (23-29); Chloride 103 mEq/L (98-107); Glucose 257 mg/dL (70-105); Osmolality,Calculated 294 (280-300); Sodium 135 mEq/L (136-145); Total Protein 6.1 g/dL (6.4-8.9); eGFR For African Americans > 60 (> 60); eGFR For Non-African Americans > 60 (> 60)
[2021-05-28 03:57] LABS: Platelet Estimate Normal (Normal)
[2021-05-28] MEDS: *HR* LORazepam 2 MG/ML VIAL IVP PRN ×2 (05:43→22:05)
[2021-05-28] MEDS: Dexamethasone Sodium Phos/PF 10 MG/ML VIAL IVP SCH (08:20)
[2021-05-28] MEDS: *HR* Rivaroxaban 10 MG TABLET PO SCH (08:21)
[2021-05-28] MEDS: Isosorbide MONOnitrate (24 HR) 30 MG TAB.ER.24H PO SCH (08:21)
[2021-05-28] MEDS: clonazePAM 0.5 MG TABLET PO SCH (08:23)
[2021-05-28] MEDS: Aspirin 81 MG TAB.CHEW PO SCH (08:23)
[2021-05-28] MEDS: Insulin LISPRO 300 UNITS/3 ML VIAL SUBQ SCH ×3 (08:23→16:06)
[2021-05-28] MEDS: Insulin DETEMIR 100 UNIT/ML X5UNITS SUBQ SCH ×2 (08:23→21:17)
[2021-05-28] MEDS: carvediloL 6.25 MG TABLET PO SCH ×2 (08:23→16:45)
[2021-05-28] MEDS ORDERED: Furosemide 20 MG/2 ML VIAL IVP ONE (14:04)
[2021-05-28] MEDS: cefTRIAXone 1,000 MG in Water for inj. (sterile) 10 ML IVP SCH (16:45)
[2021-05-28] MEDS: Remdesivir 100 MG in 0.9 % Sodium Chloride 100 ML IVPB SCH (18:19)
[2021-05-28] MEDS: Nystatin Cream 15 GM TUBE TP SCH (21:18)
[2021-05-29 03:43] LABS: Hematocrit 40.1 % (35.3-44.9); Hemoglobin 13.6 g/dL (11.5-15.4); Mean Corpuscular HGB Conc 33.9 g/dL (31.6-35.5); Mean Corpuscular Hemoglobin 31.9 pg (28.0-33.3); Mean Corpuscular Volume 93.9 fL (83.0-100.0); Mean Platelet Volume 10.7 fL (9.4-12.4); Platelet Count 224 K/mcL (140-400); Red Blood Count 4.27 M/mcL (3.82-4.97); Red Cell Distribution Width 13.9 % (11.5-14.5)
[2021-05-29 04:02] LABS: BUN/Creatinine Ratio 30 (6-26); Blood Urea Nitrogen 27 mg/dL (8-23); Calcium 7.9 mg/dL (8.6-10.3); Carbon Dioxide 25 mEq/L (23-29); Chloride 103 mEq/L (98-107); Glucose 143 mg/dL (70-105); Magnesium 2.1 mg/dL (1.6-2.6); Osmolality,Calculated 288 (280-300); Potassium 3.8 mEq/L (3.5-5.1); Sodium 135 mEq/L (136-145); eGFR For African Americans > 60 (> 60); eGFR For Non-African Americans > 60 (> 60)
[2021-05-29 04:03] LABS: Albumin/Globulin Ratio 0.9 (1.1-2.2); Bilirubin,Direct 0.3 mg/dL (0.0-0.2); Bilirubin,Indirect 0.3 mg/dL (0.0-1.0); Bilirubin,Total 0.6 mg/dL (0.3-1.0); Globulin 3.2 g/dL (2.4-3.5); Total Protein 6.2 g/dL (6.4-8.9)
[2021-05-29] MEDS ORDERED: Isovue-370 500 ML BOTTLE IVP ONE (07:52)
[2021-05-29] MEDS ORDERED: Azithromycin 500 MG in 0.9 % Sodium Chloride 250 ML IVPB ONE (09:00)
[2021-05-29] MEDS: Insulin LISPRO 300 UNITS/3 ML VIAL SUBQ SCH ×3 (09:28→17:09)
[2021-05-29] MEDS: Dexamethasone Sodium Phos/PF 10 MG/ML VIAL IVP SCH (09:43)
[2021-05-29] MEDS: Insulin DETEMIR 100 UNIT/ML X5UNITS SUBQ SCH ×2 (09:49→20:43)
[2021-05-29] MEDS: Aspirin 81 MG TAB.CHEW PO SCH (09:49)
[2021-05-29] MEDS: Isosorbide MONOnitrate (24 HR) 30 MG TAB.ER.24H PO SCH (09:50)
[2021-05-29] MEDS: clonazePAM 0.5 MG TABLET PO SCH (09:50)
[2021-05-29] MEDS: carvediloL 6.25 MG TABLET PO SCH ×2 (09:50→17:09)
[2021-05-29] MEDS: *HR* Rivaroxaban 10 MG TABLET PO SCH (09:50)
[2021-05-29] MEDS: Furosemide 20 MG/2 ML VIAL IVP SCH ×2 (11:47→20:42)
[2021-05-29] MEDS: Nystatin Cream 15 GM TUBE TP SCH ×2 (11:47→20:44)
[2021-05-29] MEDS: *HR* LORazepam 2 MG/ML VIAL IVP PRN ×2 (12:42→22:44)
[2021-05-29] MEDS: cefTRIAXone 1,000 MG in Water for inj. (sterile) 10 ML IVP SCH (17:08)
[2021-05-30 06:59] LABS: Hematocrit 40.6 % (35.3-44.9); Hemoglobin 13.9 g/dL (11.5-15.4); Mean Corpuscular HGB Conc 34.2 g/dL (31.6-35.5); Mean Corpuscular Hemoglobin 31.8 pg (28.0-33.3); Mean Corpuscular Volume 92.9 fL (83.0-100.0); Mean Platelet Volume 10.6 fL (9.4-12.4); Platelet Count 255 K/mcL (140-400); Red Blood Count 4.37 M/mcL (3.82-4.97); Red Cell Distribution Width 13.6 % (11.5-14.5); White Blood Count 11.8 K/mcL (4.3-11.1)
[2021-05-30 07:18] LABS: BUN/Creatinine Ratio 33 (6-26); Blood Urea Nitrogen 29 mg/dL (8-23); Calcium 7.8 mg/dL (8.6-10.3); Carbon Dioxide 25 mEq/L (23-29); Chloride 102 mEq/L (98-107); Glucose 204 mg/dL (70-105); Osmolality,Calculated 296 (280-300); Potassium 3.8 mEq/L (3.5-5.1); Sodium 137 mEq/L (136-145); eGFR For African Americans > 60 (> 60); eGFR For Non-African Americans > 60 (> 60)
[2021-05-30] MEDS: Dexamethasone Sodium Phos/PF 10 MG/ML VIAL IVP SCH (07:54)
[2021-05-30] MEDS: Isosorbide MONOnitrate (24 HR) 30 MG TAB.ER.24H PO SCH (07:54)
[2021-05-30] MEDS: carvediloL 6.25 MG TABLET PO SCH ×2 (07:54→17:56)
[2021-05-30] MEDS: clonazePAM 0.5 MG TABLET PO SCH (07:54)
[2021-05-30] MEDS: Aspirin 81 MG TAB.CHEW PO SCH (07:54)
[2021-05-30] MEDS: *HR* Rivaroxaban 10 MG TABLET PO SCH (07:54)
[2021-05-30] MEDS: Insulin DETEMIR 100 UNIT/ML X5UNITS SUBQ SCH ×2 (07:55→21:23)
[2021-05-30] MEDS: Nystatin Cream 15 GM TUBE TP SCH ×2 (07:56→21:25)
[2021-05-30] MEDS: Furosemide 20 MG/2 ML VIAL IVP SCH (08:01)
[2021-05-30] MEDS: Insulin LISPRO 300 UNITS/3 ML VIAL SUBQ SCH ×4 (08:12→21:24)
[2021-05-30 08:37] LABS: Magnesium 2.2 mg/dL (1.6-2.6); Phosphorous 2.5 mg/dL (2.7-4.5); Triglycerides 63 mg/dL (< 150)
[2021-05-30] MEDS: *HR* LORazepam 2 MG/ML VIAL IVP PRN ×2 (10:33→18:22)
[2021-05-30] MEDS ORDERED: D10% in Water 500 ML IVC PRN (12:22)
[2021-05-30] MEDS ORDERED: Morphine Sulfate Oral CONC 10 MG/0.5 ML ORAL.SYG SL PRN (16:08)
[2021-05-30] MEDS ORDERED: Clinimix E 5%-15% SOLUTION 2,000 ML with MVI, adult with vitamin K 10 ML IVC SCH (17:00)
[2021-05-31] MEDS: Insulin LISPRO 300 UNITS/3 ML VIAL SUBQ SCH ×6 (00:13→20:46)
[2021-05-31] MEDS: *HR* LORazepam 2 MG/ML VIAL IVP PRN ×5 (00:25→20:45)
[2021-05-31 05:19] LABS: Basophils % 0.2 %; Hematocrit 40.1 % (35.3-44.9); Hemoglobin 13.1 g/dL (11.5-15.4); Immature Granulocytes % 0.6 % (0-4); Lymphocytes # 0.4 K/mcL (0.6-4.6); Lymphocytes % 4.1 %; Mean Corpuscular HGB Conc 32.7 g/dL (31.6-35.5); Mean Corpuscular Hemoglobin 31.3 pg (28.0-33.3); Mean Corpuscular Volume 95.7 fL (83.0-100.0); Mean Platelet Volume 10.8 fL (9.4-12.4); Monocytes # 0.2 K/mcL (0.0-1.3); Platelet Count 188 K/mcL (140-400); Red Blood Count 4.19 M/mcL (3.82-4.97); Red Cell Distribution Width 13.7 % (11.5-14.5); Segmented Neutrophils % 93.1 %; White Blood Count 10.8 K/mcL (4.3-11.1)
[2021-05-31 05:34] LABS: BUN/Creatinine Ratio 39 (6-26); Blood Urea Nitrogen 33 mg/dL (8-23); Calcium 7.8 mg/dL (8.6-10.3); Carbon Dioxide 26 mEq/L (23-29); Chloride 99 mEq/L (98-107); Glucose 332 mg/dL (70-105); Magnesium 2.3 mg/dL (1.6-2.6); Osmolality,Calculated 296 (280-300); Potassium 4.1 mEq/L (3.5-5.1); Sodium 133 mEq/L (136-145); eGFR For African Americans > 60 (> 60); eGFR For Non-African Americans > 60 (> 60)
[2021-05-31] MEDS: Dexamethasone Sodium Phos/PF 10 MG/ML VIAL IVP SCH (08:28)
[2021-05-31] MEDS: carvediloL 6.25 MG TABLET PO SCH ×2 (08:28→16:22)
[2021-05-31] MEDS: Isosorbide MONOnitrate (24 HR) 30 MG TAB.ER.24H PO SCH (08:29)
[2021-05-31] MEDS: Aspirin 81 MG TAB.CHEW PO SCH (08:29)
[2021-05-31] MEDS: *HR* Rivaroxaban 10 MG TABLET PO SCH (08:29)
[2021-05-31] MEDS: clonazePAM 0.5 MG TABLET PO SCH (08:29)
[2021-05-31] MEDS: Nystatin Cream 15 GM TUBE TP SCH ×2 (08:31→20:47)
[2021-05-31] MEDS: Insulin DETEMIR 100 UNIT/ML X5UNITS SUBQ SCH ×2 (10:05→20:45)
[2021-05-31] MEDS: Acetylcysteine 10% 2 ML INHSOL IH SCH ×4 (10:51→23:51)
[2021-05-31] MEDS ORDERED: *HR* HYDROcodone/Acet 5/325 mg TABLET PO PRN (13:01)
[2021-05-31] MEDS: Furosemide 20 MG/2 ML VIAL IVP SCH (14:27)
[2021-05-31] MEDS: Morphine Sulfate Oral CONC 10 MG/0.5 ML ORAL.SYG SL PRN (14:27)
[2021-05-31] MEDS ORDERED: Clinimix E 5%-15% SOLUTION 2,000 ML with MVI, adult with vitamin K 10 ML IVC SCH (17:00)
[2021-06-01] MEDS: Insulin LISPRO 300 UNITS/3 ML VIAL SUBQ SCH ×6 (00:01→20:32)
[2021-06-01] MEDS: *HR* LORazepam 2 MG/ML VIAL IVP PRN ×2 (02:51→08:54)
[2021-06-01] MEDS: Acetylcysteine 10% 2 ML INHSOL IH SCH ×5 (04:06→20:49)
[2021-06-01] MEDS: Morphine Sulfate Oral CONC 10 MG/0.5 ML ORAL.SYG SL PRN ×2 (05:46→12:28)
[2021-06-01 06:19] LABS: Basophils % 0.1 %; Hematocrit 41.8 % (35.3-44.9); Hemoglobin 13.8 g/dL (11.5-15.4); Immature Granulocytes % 0.5 % (0-4); Lymphocytes # 0.5 K/mcL (0.6-4.6); Lymphocytes % 3.1 %; Mean Corpuscular Hemoglobin 31.6 pg (28.0-33.3); Mean Corpuscular Volume 95.7 fL (83.0-100.0); Mean Platelet Volume 10.8 fL (9.4-12.4); Monocytes # 0.3 K/mcL (0.0-1.3); Monocytes % 1.8 %; Neutrophils # 14.5 K/mcL (1.6-8.9); Platelet Count 198 K/mcL (140-400); Red Blood Count 4.37 M/mcL (3.82-4.97); Red Cell Distribution Width 13.7 % (11.5-14.5); Segmented Neutrophils % 94.5 %; White Blood Count 15.3 K/mcL (4.3-11.1)
[2021-06-01 06:42] LABS: BUN/Creatinine Ratio 41 (6-26); Blood Urea Nitrogen 36 mg/dL (8-23); Calcium 8.1 mg/dL (8.6-10.3); Carbon Dioxide 26 mEq/L (23-29); Chloride 97 mEq/L (98-107); Glucose 346 mg/dL (70-105); Magnesium 2.3 mg/dL (1.6-2.6); Osmolality,Calculated 296 (280-300); Phosphorous 2.4 mg/dL (2.7-4.5); Potassium 4.1 mEq/L (3.5-5.1); Sodium 132 mEq/L (136-145); eGFR For African Americans > 60 (> 60); eGFR For Non-African Americans > 60 (> 60)
[2021-06-01] MEDS: Aspirin 81 MG TAB.CHEW PO SCH (08:54)
[2021-06-01] MEDS: Furosemide 20 MG/2 ML VIAL IVP SCH (08:54)
[2021-06-01] MEDS: Isosorbide MONOnitrate (24 HR) 30 MG TAB.ER.24H PO SCH (08:54)
[2021-06-01] MEDS: *HR* Rivaroxaban 10 MG TABLET PO SCH (08:54)
[2021-06-01] MEDS: Dexamethasone Sodium Phos/PF 10 MG/ML VIAL IVP SCH (08:54)
[2021-06-01] MEDS: carvediloL 6.25 MG TABLET PO SCH ×2 (08:55→17:03)
[2021-06-01] MEDS: Insulin DETEMIR 100 UNIT/ML X5UNITS SUBQ SCH ×2 (08:55→20:49)
[2021-06-01] MEDS: Nystatin Cream 15 GM TUBE TP SCH ×2 (08:56→20:48)
[2021-06-01] MEDS ORDERED: Isovue-370 500 ML BOTTLE IVP ONE (11:06)
[2021-06-01 13:29] LABS: Bacteria,Urine Few per hpf (None-Few); RBC,Urine TNTC per hpf (0-3)
[2021-06-01] MEDS ORDERED: Heparin 25,000UNIT/250ML 1/2NS 25,000 UNIT/250 ML IV.SOLN IVC SCH (13:30)
[2021-06-01] MEDS ORDERED: *HR* Heparin 5,000 UNIT/ML VIAL IVP PRN ×2 (13:30)
[2021-06-01 14:20] LABS: Hematocrit 38.6 % (35.3-44.9); Mean Corpuscular HGB Conc 33.7 g/dL (31.6-35.5); Mean Corpuscular Volume 95.1 fL (83.0-100.0); Mean Platelet Volume 10.8 fL (9.4-12.4); Platelet Count 173 K/mcL (140-400); Red Blood Count 4.06 M/mcL (3.82-4.97); Red Cell Distribution Width 13.6 % (11.5-14.5); White Blood Count 13.8 K/mcL (4.3-11.1)
[2021-06-01] MEDS ORDERED: Heparin 25,000 UNIT/250 ML 25,000 UNIT/250 ML IV.SOLN IVC SCH ×2 (14:30→15:00)
[2021-06-01 14:38] LABS: INR 1.5; Prothrombin Time 16.7 Seconds (9.4-12.1)
[2021-06-01 14:40] LABS: Activated Partial Thrombo Time 21.4 Seconds (26.0-36.0)
[2021-06-01 14:44] LABS: Heparin anti-factor XA UFH 1.27 IU/mL (0.30-0.70)
[2021-06-01] MEDS ORDERED: SODIUM CHLORIDE 0.9% IVC SCH (14:45)
[2021-06-01] MEDS ORDERED: HEPARIN IVC SCH (14:45)
[2021-06-01 16:11] LABS: ABG Base Excess -1 mEq/L (-2 to 3); ABG HCO3 25 mEq/L (21-27); ABG Oxygen Saturation 89 % (95-98); ABG PCO2 46 mmHg (35-45); ABG PH 7.35 pH Units (7.32-7.45); ABG PO2 59 mmHg (85-104); ABG TCO2 27 mEq/L (20-26)
[2021-06-01] MEDS ORDERED: Clinimix E 5%-15% SOLUTION 2,000 ML with MVI, adult with vitamin K 10 ML IVC SCH (17:00)
[2021-06-02] MEDS: Insulin LISPRO 300 UNITS/3 ML VIAL SUBQ SCH ×7 (00:19→23:50)
[2021-06-02] MEDS: Acetylcysteine 10% 2 ML INHSOL IH SCH ×7 (00:35→23:58)
[2021-06-02 02:19] LABS: Basophils % 0.1 %; Eosinophils # 0.1 K/mcL (0.0-0.6); Eosinophils % 0.4 %; Hematocrit 38.4 % (35.3-44.9); Immature Granulocytes % 0.6 % (0-4); Lymphocytes # 0.8 K/mcL (0.6-4.6); Lymphocytes % 5.9 %; Mean Corpuscular HGB Conc 33.9 g/dL (31.6-35.5); Mean Corpuscular Volume 94.6 fL (83.0-100.0); Monocytes # 0.2 K/mcL (0.0-1.3); Monocytes % 1.3 %; Platelet Count 155 K/mcL (140-400); Red Blood Count 4.06 M/mcL (3.82-4.97); Red Cell Distribution Width 13.5 % (11.5-14.5); Segmented Neutrophils % 91.7 %; White Blood Count 14.1 K/mcL (4.3-11.1)
[2021-06-02 02:51] LABS: BUN/Creatinine Ratio 41 (6-26); Blood Urea Nitrogen 34 mg/dL (8-23); Calcium 7.7 mg/dL (8.6-10.3); Carbon Dioxide 22 mEq/L (23-29); Chloride 99 mEq/L (98-107); Glucose 289 mg/dL (70-105); Magnesium 2.3 mg/dL (1.6-2.6); Osmolality,Calculated 288 (280-300); Phosphorous 2.7 mg/dL (2.7-4.5); Potassium 4.5 mEq/L (3.5-5.1); Sodium 130 mEq/L (136-145); eGFR For African Americans > 60 (> 60); eGFR For Non-African Americans > 60 (> 60)
[2021-06-02] MEDS: Heparin 25,000 UNIT/250 ML 25,000 UNIT/250 ML IV.SOLN IVC SCH ×2 (04:44→17:17)
[2021-06-02] MEDS: Furosemide 20 MG/2 ML VIAL IVP SCH (08:12)
[2021-06-02] MEDS: *HR* LORazepam 2 MG/ML VIAL IVP PRN ×3 (08:12→20:40)
[2021-06-02] MEDS: Insulin DETEMIR 100 UNIT/ML X5UNITS SUBQ SCH ×2 (08:13→20:21)
[2021-06-02] MEDS: Nystatin Cream 15 GM TUBE TP SCH ×2 (08:13→20:22)
[2021-06-02] MEDS: Dexamethasone Sodium Phos/PF 10 MG/ML VIAL IVP SCH (08:13)
[2021-06-02] MEDS: Isosorbide MONOnitrate (24 HR) 30 MG TAB.ER.24H PO SCH (10:19)
[2021-06-02] MEDS: Aspirin 81 MG TAB.CHEW PO SCH (10:19)
[2021-06-02] MEDS: carvediloL 6.25 MG TABLET PO SCH ×2 (10:19→16:54)
[2021-06-02] MEDS: Morphine Sulfate Oral CONC 10 MG/0.5 ML ORAL.SYG SL PRN (11:25)
[2021-06-02] MEDS ORDERED: Acetaminophen IV 500 MG/50 ML BAG IVPB ONE (14:47)
[2021-06-02] MEDS ORDERED: Clinimix E 5%-15% SOLUTION 2,000 ML with MVI, adult with vitamin K 10 ML IVC SCH (17:00)
[2021-06-02 22:08] LABS: Bilirubin,Urine Negative (Negative); Blood,Urine Large (Negative); Clarity,Urine Turbid (Clear); Color,Urine Red (Yellow); Glucose,Urine (UA) Normal (Normal); Ketones,Urine Negative (Negative); Leukocyte Esterase,Urine Negative (Negative); Nitrite,Urine Negative (Negative); Protein,Urine 100 mg/dL (Neg-Trace); Specific Gravity,Urine 1.028 (1.010-1.025); Urobilinogen,Urine Normal (Normal)
[2021-06-03] MEDS: *HR* LORazepam 2 MG/ML VIAL IVP PRN ×2 (00:50→05:55)
[2021-06-03] MEDS ORDERED: *HR* LORazepam 2 MG/ML VIAL IVP ONE (02:26)
[2021-06-03] MEDS: Acetylcysteine 10% 2 ML INHSOL IH SCH ×3 (03:29→11:37)
[2021-06-03] MEDS: Insulin LISPRO 300 UNITS/3 ML VIAL SUBQ SCH ×5 (04:05→21:07)
[2021-06-03 05:00] LABS: Basophils % 0.1 %; Eosinophils # 0.3 K/mcL (0.0-0.6); Eosinophils % 1.5 %; Hematocrit 38.1 % (35.3-44.9); Hemoglobin 12.4 g/dL (11.5-15.4); Immature Granulocytes % 0.9 % (0-4); Lymphocytes # 0.5 K/mcL (0.6-4.6); Lymphocytes % 3.1 %; Mean Corpuscular HGB Conc 32.5 g/dL (31.6-35.5); Mean Corpuscular Hemoglobin 31.1 pg (28.0-33.3); Mean Platelet Volume 11.4 fL (9.4-12.4); Monocytes # 0.3 K/mcL (0.0-1.3); Monocytes % 1.5 %; Neutrophils # 15.2 K/mcL (1.6-8.9); Platelet Count 138 K/mcL (140-400); Red Blood Count 3.99 M/mcL (3.82-4.97); Red Cell Distribution Width 13.4 % (11.5-14.5); Segmented Neutrophils % 92.9 %; White Blood Count 16.4 K/mcL (4.3-11.1)
[2021-06-03 05:06] LABS: Mean Corpuscular Volume 95.5 fL (83.0-100.0)
[2021-06-03 05:53] LABS: Blood Urea Nitrogen 41 mg/dL (8-23)
[2021-06-03 05:54] LABS: BUN/Creatinine Ratio 42 (6-26); Calcium 7.9 mg/dL (8.6-10.3); Carbon Dioxide 28 mEq/L (23-29); Chloride 97 mEq/L (98-107); Glucose 336 mg/dL (70-105); Osmolality,Calculated 293 (280-300); Phosphorous 2.1 mg/dL (2.7-4.5); Potassium 4.1 mEq/L (3.5-5.1); Sodium 130 mEq/L (136-145); eGFR For African Americans > 60 (> 60); eGFR For Non-African Americans 58 (> 60)
[2021-06-03] MEDS: Aspirin 81 MG TAB.CHEW PO SCH (08:04)
[2021-06-03] MEDS: carvediloL 6.25 MG TABLET PO SCH (08:04)
[2021-06-03] MEDS: Isosorbide MONOnitrate (24 HR) 30 MG TAB.ER.24H PO SCH (08:05)
[2021-06-03] MEDS: Furosemide 20 MG/2 ML VIAL IVP SCH (08:10)
[2021-06-03] MEDS: Dexamethasone Sodium Phos/PF 10 MG/ML VIAL IVP SCH (08:11)
[2021-06-03] MEDS: Nystatin Cream 15 GM TUBE TP SCH ×2 (08:20→21:15)
[2021-06-03] MEDS: Insulin DETEMIR 100 UNIT/ML X5UNITS SUBQ SCH ×3 (08:20→21:06)
[2021-06-03] MEDS ORDERED: D10% in Water 500 ML IVC PRN ×3 (10:46→10:52)
[2021-06-03] MEDS: Heparin 25,000 UNIT/250 ML 25,000 UNIT/250 ML IV.SOLN IVC SCH (12:33)
[2021-06-03] MEDS ORDERED: Piperacillin/Tazobactam 3.375 GM in Water for inj. (sterile) 20 ML IVP ONE (15:54)
[2021-06-03] MEDS ORDERED: Vancomycin 1,750 MG in 0.9 % Sodium Chloride 250 ML IVPB SCH (16:00)
[2021-06-03] MEDS ORDERED: Clinimix E 5%-15% SOLUTION 2,000 ML with MVI, adult with vitamin K 10 ML IVC SCH (17:00)
[2021-06-03] MEDS: Fluconazole 400 MG/200 ML 400 MG/200 ML BAG IVPB SCH (17:35)
[2021-06-03] MEDS: Piperacillin/Tazobactam 3.375 GM in 0.9 % Sodium Chloride Mini Bag 100 ML IVPB SCH (17:40)
[2021-06-03] MEDS ORDERED: Insulin LISPRO 300 UNITS/3 ML VIAL SUBQ ONE (17:56)
[2021-06-03] MEDS: Vancomycin 1,750 MG/517.5 ML IV.SOLN IVPB SCH (17:58)
[2021-06-03] MEDS ORDERED: Vancomycin 1,750 MG/517.5 ML IV.SOLN IVPB SCH (18:00)
[2021-06-04] MEDS: Piperacillin/Tazobactam 3.375 GM in 0.9 % Sodium Chloride Mini Bag 100 ML IVPB SCH ×3 (00:18→15:54)
[2021-06-04] MEDS: Insulin LISPRO 300 UNITS/3 ML VIAL SUBQ SCH ×6 (00:22→20:26)
[2021-06-04] MEDS: *HR* LORazepam 2 MG/ML VIAL IVP PRN ×5 (00:37→23:12)
[2021-06-04] MEDS: Heparin 25,000 UNIT/250 ML 25,000 UNIT/250 ML IV.SOLN IVC SCH (06:15)
[2021-06-04] MEDS: Vancomycin 1,750 MG/517.5 ML IV.SOLN IVPB SCH ×2 (06:16→15:54)
[2021-06-04 07:02] LABS: BUN/Creatinine Ratio 44 (6-26); Blood Urea Nitrogen 40 mg/dL (8-23); Calcium 7.9 mg/dL (8.6-10.3); Carbon Dioxide 27 mEq/L (23-29); Chloride 101 mEq/L (98-107); Glucose 348 mg/dL (70-105); Magnesium 2.2 mg/dL (1.6-2.6); Osmolality,Calculated 300 (280-300); Phosphorous 2.4 mg/dL (2.7-4.5); Potassium 4.2 mEq/L (3.5-5.1); Sodium 133 mEq/L (136-145); eGFR For African Americans > 60 (> 60); eGFR For Non-African Americans > 60 (> 60)
[2021-06-04] MEDS: Dexamethasone Sodium Phos/PF 10 MG/ML VIAL IVP SCH (07:48)
[2021-06-04] MEDS: Aspirin 81 MG TAB.CHEW PO SCH (07:48)
[2021-06-04] MEDS: Fluconazole 400 MG/200 ML 400 MG/200 ML BAG IVPB SCH (07:49)
[2021-06-04] MEDS: Isosorbide MONOnitrate (24 HR) 30 MG TAB.ER.24H PO SCH (07:50)
[2021-06-04] MEDS: Furosemide 20 MG/2 ML VIAL IVP SCH (07:50)
[2021-06-04] MEDS: Nystatin Cream 15 GM TUBE TP SCH ×2 (07:50→20:25)
[2021-06-04] MEDS: Levothyroxine Sodium 100 MCG VIAL IVP SCH (07:51)
[2021-06-04] MEDS: Pantoprazole 40 MG VIAL IVP SCH (08:26)
[2021-06-04] MEDS: Insulin DETEMIR 100 UNIT/ML X5UNITS SUBQ SCH ×2 (08:28→20:26)
[2021-06-04] MEDS: Morphine Sulfate Oral CONC 10 MG/0.5 ML ORAL.SYG SL PRN (12:18)
[2021-06-04] MEDS ORDERED: Clinimix E 5%-15% SOLUTION 2,000 ML with MVI, adult with vitamin K 10 ML IVC SCH (17:00)
[2021-06-05] MEDS: Heparin 25,000 UNIT/250 ML 25,000 UNIT/250 ML IV.SOLN IVC SCH ×3 (00:16→20:37)
[2021-06-05] MEDS: Insulin LISPRO 300 UNITS/3 ML VIAL SUBQ SCH ×6 (00:18→20:38)
[2021-06-05] MEDS: Morphine Sulfate Oral CONC 10 MG/0.5 ML ORAL.SYG SL PRN ×2 (01:39→20:36)
[2021-06-05] MEDS: Piperacillin/Tazobactam 3.375 GM in 0.9 % Sodium Chloride Mini Bag 100 ML IVPB SCH ×3 (01:40→15:39)
[2021-06-05 01:53] LABS: BUN/Creatinine Ratio 45 (6-26); Blood Urea Nitrogen 38 mg/dL (8-23); C-Reactive Protein 81 mg/L (Less than 10); Calcium 7.1 mg/dL (8.6-10.3); Carbon Dioxide 24 mEq/L (23-29); Chloride 96 mEq/L (98-107); Glucose 324 mg/dL (70-105); Osmolality,Calculated 286 (280-300); Phosphorous 2.2 mg/dL (2.7-4.5); Potassium 4.8 mEq/L (3.5-5.1); Sodium 127 mEq/L (136-145); eGFR For African Americans > 60 (> 60); eGFR For Non-African Americans > 60 (> 60)
[2021-06-05] MEDS: *HR* LORazepam 2 MG/ML VIAL IVP PRN ×5 (02:23→22:50)
[2021-06-05] MEDS: Vancomycin 1,500 MG/265 ML IV.SOLN IVPB SCH ×2 (06:22→15:38)
[2021-06-05] MEDS: Fluconazole 400 MG/200 ML 400 MG/200 ML BAG IVPB SCH (08:38)
[2021-06-05] MEDS: Dexamethasone Sodium Phos/PF 10 MG/ML VIAL IVP SCH (08:38)
[2021-06-05] MEDS: Pantoprazole 40 MG VIAL IVP SCH (08:38)
[2021-06-05] MEDS: Levothyroxine Sodium 100 MCG VIAL IVP SCH (08:39)
[2021-06-05] MEDS: Insulin DETEMIR 100 UNIT/ML X5UNITS SUBQ SCH ×2 (08:40→20:38)
[2021-06-05] MEDS: Nystatin Cream 15 GM TUBE TP SCH ×2 (08:40→20:38)
[2021-06-05] MEDS: Aspirin 81 MG TAB.CHEW PO SCH (08:40)
[2021-06-05] MEDS: Isosorbide MONOnitrate (24 HR) 30 MG TAB.ER.24H PO SCH (08:40)
[2021-06-05] MEDS ORDERED: Clinimix E 5%-15% SOLUTION 2,000 ML with MVI, adult with vitamin K 10 ML IVC SCH (17:00)
[2021-06-06] MEDS ORDERED: *HR* LORazepam 2 MG/ML VIAL IVP ONE (00:26)
[2021-06-06] MEDS: Piperacillin/Tazobactam 3.375 GM in 0.9 % Sodium Chloride Mini Bag 100 ML IVPB SCH ×3 (00:36→16:57)
[2021-06-06] MEDS: Insulin LISPRO 300 UNITS/3 ML VIAL SUBQ SCH ×6 (01:33→19:37)
[2021-06-06 02:53] LABS: BUN/Creatinine Ratio 44 (6-26); Blood Urea Nitrogen 35 mg/dL (8-23); Calcium 7.5 mg/dL (8.6-10.3); Carbon Dioxide 28 mEq/L (23-29); Chloride 101 mEq/L (98-107); Glucose 288 mg/dL (70-105); Magnesium 1.9 mg/dL (1.6-2.6); Osmolality,Calculated 305 (280-300); Potassium 4.6 mEq/L (3.5-5.1); Sodium 138 mEq/L (136-145); Triglycerides 151 mg/dL (< 150); eGFR For African Americans > 60 (> 60); eGFR For Non-African Americans > 60 (> 60)
[2021-06-06] MEDS: *HR* LORazepam 2 MG/ML VIAL IVP PRN ×4 (02:56→20:36)
[2021-06-06] MEDS ORDERED: *HR* Labetalol 20 MG/4 ML SYRINGE IVP PRN (07:46)
[2021-06-06] MEDS: Levothyroxine Sodium 100 MCG VIAL IVP SCH (09:48)
[2021-06-06] MEDS: Dexamethasone Sodium Phos/PF 10 MG/ML VIAL IVP SCH (09:49)
[2021-06-06] MEDS: Pantoprazole 40 MG VIAL IVP SCH (09:49)
[2021-06-06] MEDS: Fluconazole 400 MG/200 ML 400 MG/200 ML BAG IVPB SCH (09:53)
[2021-06-06] MEDS: Nystatin Cream 15 GM TUBE TP SCH ×2 (10:02→19:37)
[2021-06-06] MEDS: Isosorbide MONOnitrate (24 HR) 30 MG TAB.ER.24H PO SCH (10:03)
[2021-06-06] MEDS: Insulin DETEMIR 100 UNIT/ML X5UNITS SUBQ SCH ×2 (10:03→20:36)
[2021-06-06] MEDS: Aspirin 81 MG TAB.CHEW PO SCH (10:03)
[2021-06-06] MEDS: Heparin 25,000 UNIT/250 ML 25,000 UNIT/250 ML IV.SOLN IVC SCH ×3 (10:11→22:14)
[2021-06-06] MEDS: Vancomycin 1,500 MG/265 ML IV.SOLN IVPB SCH ×2 (10:22→21:37)
[2021-06-06] MEDS ORDERED: Clinimix E 5%-15% SOLUTION 2,000 ML with MVI, adult with vitamin K 10 ML, ZN/CU/MN/SE... IVC SCH (17:00)
[2021-06-06 20:06] LABS: Basophils % 0.1 %; Hematocrit 33.3 % (35.3-44.9); Hemoglobin 11.3 g/dL (11.5-15.4); Immature Granulocytes % 1.4 % (0-4); Lymphocytes # 0.4 K/mcL (0.6-4.6); Lymphocytes % 3.5 %; Mean Corpuscular HGB Conc 33.9 g/dL (31.6-35.5); Mean Corpuscular Hemoglobin 31.9 pg (28.0-33.3); Mean Corpuscular Volume 94.1 fL (83.0-100.0); Mean Platelet Volume 11.9 fL (9.4-12.4); Monocytes # 0.3 K/mcL (0.0-1.3); Neutrophils # 11.6 K/mcL (1.6-8.9); Platelet Count 150 K/mcL (140-400); Red Blood Count 3.54 M/mcL (3.82-4.97); Red Cell Distribution Width 13.2 % (11.5-14.5); White Blood Count 12.5 K/mcL (4.3-11.1)
[2021-06-07] MEDS: Piperacillin/Tazobactam 3.375 GM in 0.9 % Sodium Chloride Mini Bag 100 ML IVPB SCH ×4 (00:04→23:53)
[2021-06-07] MEDS: *HR* LORazepam 2 MG/ML VIAL IVP PRN ×5 (00:28→23:02)
[2021-06-07 00:49] LABS: BUN/Creatinine Ratio 41 (6-26); Blood Urea Nitrogen 29 mg/dL (8-23); Calcium 7.3 mg/dL (8.6-10.3); Carbon Dioxide 28 mEq/L (23-29); Chloride 100 mEq/L (98-107); Glucose 262 mg/dL (70-105); Magnesium 1.8 mg/dL (1.6-2.6); Osmolality,Calculated 295 (280-300); Phosphorous 2.8 mg/dL (2.7-4.5); Potassium 4.3 mEq/L (3.5-5.1); Sodium 135 mEq/L (136-145); eGFR For African Americans > 60 (> 60); eGFR For Non-African Americans > 60 (> 60)
[2021-06-07] MEDS: Insulin LISPRO 300 UNITS/3 ML VIAL SUBQ SCH ×7 (00:52→23:52)
[2021-06-07 00:56] LABS: Basophils % 0.1 %; Eosinophils % 0.1 %; Hematocrit 35.4 % (35.3-44.9); Hemoglobin 11.7 g/dL (11.5-15.4); Immature Granulocytes % 1.2 % (0-4); Lymphocytes # 0.5 K/mcL (0.6-4.6); Lymphocytes % 3.4 %; Mean Corpuscular HGB Conc 33.1 g/dL (31.6-35.5); Mean Corpuscular Volume 93.9 fL (83.0-100.0); Mean Platelet Volume 11.9 fL (9.4-12.4); Monocytes # 0.3 K/mcL (0.0-1.3); Monocytes % 2.4 %; Neutrophils # 12.6 K/mcL (1.6-8.9); Platelet Count 163 K/mcL (140-400); Red Blood Count 3.77 M/mcL (3.82-4.97); Red Cell Distribution Width 13.3 % (11.5-14.5); Segmented Neutrophils % 92.8 %; White Blood Count 13.6 K/mcL (4.3-11.1)
[2021-06-07] MEDS: Dexamethasone Sodium Phos/PF 10 MG/ML VIAL IVP SCH (08:37)
[2021-06-07] MEDS: Pantoprazole 40 MG VIAL IVP SCH (08:37)
[2021-06-07] MEDS: Levothyroxine Sodium 100 MCG VIAL IVP SCH (08:37)
[2021-06-07] MEDS: Vancomycin 1,500 MG/265 ML IV.SOLN IVPB SCH ×2 (08:39→21:25)
[2021-06-07] MEDS: Isosorbide MONOnitrate (24 HR) 30 MG TAB.ER.24H PO SCH (08:41)
[2021-06-07] MEDS: Nystatin Cream 15 GM TUBE TP SCH ×2 (08:41→21:25)
[2021-06-07] MEDS: Aspirin 81 MG TAB.CHEW PO SCH (08:41)
[2021-06-07] MEDS: Morphine Sulfate Oral CONC 10 MG/0.5 ML ORAL.SYG SL PRN ×3 (11:21→22:47)
[2021-06-07] MEDS: Insulin DETEMIR 100 UNIT/ML X5UNITS SUBQ SCH ×2 (11:21→21:25)
[2021-06-07] MEDS: *HR* Enoxaparin 120 MG/0.8 ML SYRINGE SQ SCH (16:43)
[2021-06-07] MEDS ORDERED: Clinimix E 5%-15% SOLUTION 2,000 ML with MVI, adult with vitamin K 10 ML, ZN/CU/MN/SE... IVC SCH (17:00)
[2021-06-08] MEDS: *HR* LORazepam 2 MG/ML VIAL IVP PRN ×4 (03:44→18:33)
[2021-06-08] MEDS: Insulin LISPRO 300 UNITS/3 ML VIAL SUBQ SCH ×5 (04:08→20:25)
[2021-06-08 04:39] LABS: Basophils % 0.2 %; Eosinophils % 0.1 %; Hematocrit 34.4 % (35.3-44.9); Hemoglobin 11.3 g/dL (11.5-15.4); Immature Granulocytes % 1.6 % (0-4); Lymphocytes # 0.6 K/mcL (0.6-4.6); Lymphocytes % 3.8 %; Mean Corpuscular HGB Conc 32.8 g/dL (31.6-35.5); Mean Corpuscular Volume 94.2 fL (83.0-100.0); Mean Platelet Volume 11.7 fL (9.4-12.4); Monocytes # 0.3 K/mcL (0.0-1.3); Monocytes % 1.8 %; Nucleated Red Blood Cells 0.2 /100 WBC (0); Platelet Count 159 K/mcL (140-400); Red Blood Count 3.65 M/mcL (3.82-4.97); Red Cell Distribution Width 13.2 % (11.5-14.5); Segmented Neutrophils % 92.5 %; White Blood Count 16.3 K/mcL (4.3-11.1)
[2021-06-08 05:13] LABS: Alanine Aminotransferase 52 Units/L (7-52); Albumin 2.4 g/dL (3.5-5.7); Albumin/Globulin Ratio 0.8 (1.1-2.2); Alkaline Phosphatase 169 Units/L (34-104); Aspartate Amino Transferase 47 Units/L (13-39); BUN/Creatinine Ratio 43 (6-26); Bilirubin,Total 0.6 mg/dL (0.3-1.0); Blood Urea Nitrogen 28 mg/dL (8-23); Calcium 7.4 mg/dL (8.6-10.3); Carbon Dioxide 31 mEq/L (23-29); Chloride 101 mEq/L (98-107); Globulin 3.1 g/dL (2.4-3.5); Glucose 135 mg/dL (70-105); Magnesium 1.9 mg/dL (1.6-2.6); Osmolality,Calculated 290 (280-300); Phosphorous 2.5 mg/dL (2.7-4.5); Potassium 4.7 mEq/L (3.5-5.1); Sodium 136 mEq/L (136-145); Total Protein 5.5 g/dL (6.4-8.9); eGFR For African Americans > 60 (> 60); eGFR For Non-African Americans > 60 (> 60)
[2021-06-08] MEDS: *HR* Enoxaparin 120 MG/0.8 ML SYRINGE SQ SCH ×2 (05:22→17:43)
[2021-06-08] MEDS: Isosorbide MONOnitrate (24 HR) 30 MG TAB.ER.24H PO SCH (09:05)
[2021-06-08] MEDS: Aspirin 81 MG TAB.CHEW PO SCH (09:05)
[2021-06-08] MEDS: Pantoprazole 40 MG VIAL IVP SCH (09:14)
[2021-06-08] MEDS: Piperacillin/Tazobactam 3.375 GM in 0.9 % Sodium Chloride Mini Bag 100 ML IVPB SCH ×2 (09:15→18:33)
[2021-06-08] MEDS: Levothyroxine Sodium 100 MCG VIAL IVP SCH (09:15)
[2021-06-08] MEDS: Furosemide 20 MG/2 ML VIAL IVP SCH (09:15)
[2021-06-08] MEDS: Insulin DETEMIR 100 UNIT/ML X5UNITS SUBQ SCH ×2 (09:15→20:25)
[2021-06-08] MEDS: Nystatin Cream 15 GM TUBE TP SCH ×2 (09:16→20:26)
[2021-06-08] MEDS: Vancomycin 1,500 MG/265 ML IV.SOLN IVPB SCH ×3 (11:56→23:30)
[2021-06-08] MEDS: Morphine Sulfate Oral CONC 10 MG/0.5 ML ORAL.SYG SL PRN ×2 (11:56→15:40)
[2021-06-08] MEDS ORDERED: Clinimix E 5%-15% SOLUTION 2,000 ML with MVI, adult with vitamin K 10 ML, ZN/CU/MN/SE... IVC SCH (17:00)
[2021-06-08] MEDS ORDERED: 0.9 % Sodium Chloride 250 ML IVC ONE (20:52)
[2021-06-08] MEDS ORDERED: Dexamethasone Sodium Phos/PF 10 MG/ML VIAL ONE (21:07)
[2021-06-08] MEDS: Albumin 25% 25gram/100mL 25 GM/100 ML IV.SOLN ONE ×2 (21:09→21:27)
[2021-06-08] MEDS: Albumin 25% 25gram/100mL 25 GM/100 ML IV.SOLN IVPB SCH (21:28)
[2021-06-09] MEDS: Insulin LISPRO 300 UNITS/3 ML VIAL SUBQ SCH ×7 (02:04→23:41)
[2021-06-09] MEDS: Piperacillin/Tazobactam 3.375 GM in 0.9 % Sodium Chloride Mini Bag 100 ML IVPB SCH ×3 (02:05→16:44)
[2021-06-09] MEDS: *HR* LORazepam 2 MG/ML VIAL IVP PRN ×3 (05:06→21:45)
[2021-06-09] MEDS: Albumin 25% 25gram/100mL 25 GM/100 ML IV.SOLN IVPB SCH (05:07)
[2021-06-09] MEDS: *HR* Enoxaparin 120 MG/0.8 ML SYRINGE SQ SCH ×2 (05:07→16:44)
[2021-06-09] MEDS: Nystatin Cream 15 GM TUBE TP SCH ×2 (08:43→23:33)
[2021-06-09] MEDS: Aspirin 81 MG TAB.CHEW PO SCH (08:43)
[2021-06-09] MEDS: Isosorbide MONOnitrate (24 HR) 30 MG TAB.ER.24H PO SCH (08:43)
[2021-06-09] MEDS: Furosemide 20 MG/2 ML VIAL IVP SCH (09:00)
[2021-06-09] MEDS: Insulin DETEMIR 100 UNIT/ML X5UNITS SUBQ SCH ×2 (09:01→23:33)
[2021-06-09] MEDS: Levothyroxine Sodium 100 MCG VIAL IVP SCH (09:02)
[2021-06-09] MEDS: Pantoprazole 40 MG VIAL IVP SCH (09:03)
[2021-06-09 09:57] LABS: Basophils % 0.1 %; Mean Corpuscular HGB Conc 33.1 g/dL (31.6-35.5); White Blood Count 11.4 K/mcL (4.3-11.1)
[2021-06-09 09:59] LABS: Eosinophils # 0.1 K/mcL (0.0-0.6); Eosinophils % 0.5 %; Hematocrit 29.6 % (35.3-44.9); Hemoglobin 9.8 g/dL (11.5-15.4); Immature Granulocytes % 1.1 % (0-4); Immature Platelets 8.3 % (1.1-6.1); Lymphocytes # 0.4 K/mcL (0.6-4.6); Lymphocytes % 3.4 %; Mean Corpuscular Hemoglobin 31.4 pg (28.0-33.3); Mean Corpuscular Volume 94.9 fL (83.0-100.0); Monocytes # 0.1 K/mcL (0.0-1.3); Monocytes % 1.1 %; Neutrophils # 10.7 K/mcL (1.6-8.9); Platelet Count 136 K/mcL (140-400); Red Blood Count 3.12 M/mcL (3.82-4.97); Red Cell Distribution Width 13.4 % (11.5-14.5); Segmented Neutrophils % 93.8 %
[2021-06-09] MEDS: Vancomycin 1,750 MG/517.5 ML IV.SOLN IVPB SCH ×2 (10:06→23:32)
[2021-06-09] MEDS: Ondansetron 4 MG/2 ML VIAL IVP PRN (10:07)
[2021-06-09 10:21] LABS: BUN/Creatinine Ratio 38 (6-26); Blood Urea Nitrogen 30 mg/dL (8-23); Calcium 7.5 mg/dL (8.6-10.3); Carbon Dioxide 29 mEq/L (23-29); Chloride 100 mEq/L (98-107); Glucose 254 mg/dL (70-105); Osmolality,Calculated 299 (280-300); Phosphorous 2.9 mg/dL (2.7-4.5); Potassium 4.4 mEq/L (3.5-5.1); Sodium 137 mEq/L (136-145); eGFR For African Americans > 60 (> 60); eGFR For Non-African Americans > 60 (> 60)
[2021-06-09] MEDS ORDERED: Clinimix E 5%-15% SOLUTION 2,000 ML with MVI, adult with vitamin K 10 ML, ZN/CU/MN/SE... IVC SCH (17:00)
[2021-06-09] MEDS ORDERED: Albumin 25% 25gram/100mL 25 GM/100 ML IV.SOLN IVPB SCH (20:52)
[2021-06-09] MEDS: Morphine Sulfate Oral CONC 10 MG/0.5 ML ORAL.SYG SL PRN (23:32)
[2021-06-10] MEDS: Piperacillin/Tazobactam 3.375 GM in 0.9 % Sodium Chloride Mini Bag 100 ML IVPB SCH ×2 (01:18→12:59)
[2021-06-10] MEDS: *HR* LORazepam 2 MG/ML VIAL IVP PRN ×5 (01:19→21:54)
[2021-06-10] MEDS: Morphine Sulfate Oral CONC 10 MG/0.5 ML ORAL.SYG SL PRN ×4 (04:58→21:54)
[2021-06-10] MEDS: *HR* Enoxaparin 120 MG/0.8 ML SYRINGE SQ SCH ×2 (04:59→17:03)
[2021-06-10] MEDS: Insulin LISPRO 300 UNITS/3 ML VIAL SUBQ SCH ×5 (04:59→20:16)
[2021-06-10 05:35] LABS: Basophils % 0.1 %; Eosinophils # 0.2 K/mcL (0.0-0.6); Eosinophils % 1.4 %; Hematocrit 30.8 % (35.3-44.9); Hemoglobin 9.9 g/dL (11.5-15.4); Immature Granulocytes % 1.1 % (0-4); Lymphocytes # 0.6 K/mcL (0.6-4.6); Lymphocytes % 3.9 %; Mean Corpuscular HGB Conc 32.1 g/dL (31.6-35.5); Mean Corpuscular Hemoglobin 31.2 pg (28.0-33.3); Mean Corpuscular Volume 97.2 fL (83.0-100.0); Mean Platelet Volume 12.2 fL (9.4-12.4); Monocytes # 0.3 K/mcL (0.0-1.3); Monocytes % 1.8 %; Neutrophils # 14.2 K/mcL (1.6-8.9); Platelet Count 141 K/mcL (140-400); Red Blood Count 3.17 M/mcL (3.82-4.97); Red Cell Distribution Width 13.4 % (11.5-14.5); Segmented Neutrophils % 91.7 %; White Blood Count 15.5 K/mcL (4.3-11.1)
[2021-06-10 05:55] LABS: BUN/Creatinine Ratio 39 (6-26); Blood Urea Nitrogen 28 mg/dL (8-23); Calcium 7.9 mg/dL (8.6-10.3); Carbon Dioxide 31 mEq/L (23-29); Chloride 100 mEq/L (98-107); Glucose 241 mg/dL (70-105); Magnesium 2.1 mg/dL (1.6-2.6); Osmolality,Calculated 291 (280-300); Phosphorous 2.7 mg/dL (2.7-4.5); Potassium 4.8 mEq/L (3.5-5.1); Sodium 134 mEq/L (136-145); eGFR For African Americans > 60 (> 60); eGFR For Non-African Americans > 60 (> 60)
[2021-06-10] MEDS: Levothyroxine Sodium 100 MCG VIAL IVP SCH (07:36)
[2021-06-10] MEDS: Pantoprazole 40 MG VIAL IVP SCH (07:36)
[2021-06-10] MEDS: Furosemide 20 MG/2 ML VIAL IVP SCH (07:36)
[2021-06-10] MEDS: Nystatin Cream 15 GM TUBE TP SCH ×2 (07:46→20:17)
[2021-06-10] MEDS: Aspirin 81 MG TAB.CHEW PO SCH (08:08)
[2021-06-10] MEDS: Isosorbide MONOnitrate (24 HR) 30 MG TAB.ER.24H PO SCH (08:08)
[2021-06-10] MEDS: Insulin DETEMIR 100 UNIT/ML X5UNITS SUBQ SCH ×2 (08:08→20:16)
[2021-06-10] MEDS: Vancomycin 1,750 MG/517.5 ML IV.SOLN IVPB SCH (11:11)
[2021-06-10] MEDS: Ondansetron 4 MG/2 ML VIAL IVP PRN (11:18)
[2021-06-10] MEDS ORDERED: Dexmedetomidine HCl 400 MCG/100 ML MLS IVC SCH ×3 (11:45→12:15)
[2021-06-10] MEDS ORDERED: 0.9 % Sodium Chloride 500 ML IVC ONE ×2 (16:20→20:00)
[2021-06-10] MEDS ORDERED: Clinimix E 5%-15% SOLUTION 2,000 ML with MVI, adult with vitamin K 10 ML, ZN/CU/MN/SE... IVC SCH (17:00)
[2021-06-11] MEDS: Morphine Sulfate Oral CONC 10 MG/0.5 ML ORAL.SYG SL PRN ×3 (00:09→07:21)
[2021-06-11] MEDS: Insulin LISPRO 300 UNITS/3 ML VIAL SUBQ SCH ×6 (00:10→21:07)
[2021-06-11] MEDS: *HR* LORazepam 2 MG/ML VIAL IVP PRN ×4 (00:10→23:44)
[2021-06-11] MEDS ORDERED: Morphine Sulfate Oral CONC 10 MG/0.5 ML ORAL.SYG SL ONE (00:52)
[2021-06-11] MEDS ORDERED: Haloperidol Lactate 5 MG/ML VIAL IVP ONE ×2 (02:57→11:49)
[2021-06-11] MEDS ORDERED: Haloperidol Lactate 5 MG/ML VIAL IM ONE (02:57)
[2021-06-11 04:18] LABS: Basophils % 0.1 %; Eosinophils # 0.4 K/mcL (0.0-0.6); Eosinophils % 2.3 %; Hematocrit 32.3 % (35.3-44.9); Hemoglobin 10.6 g/dL (11.5-15.4); Lymphocytes # 0.8 K/mcL (0.6-4.6); Mean Corpuscular HGB Conc 32.8 g/dL (31.6-35.5); Mean Corpuscular Volume 97.6 fL (83.0-100.0); Mean Platelet Volume 12.5 fL (9.4-12.4); Monocytes # 0.4 K/mcL (0.0-1.3); Monocytes % 1.9 %; Platelet Count 171 K/mcL (140-400); Red Blood Count 3.31 M/mcL (3.82-4.97); Red Cell Distribution Width 13.8 % (11.5-14.5); Segmented Neutrophils % 90.7 %; White Blood Count 18.8 K/mcL (4.3-11.1)
[2021-06-11 04:30] LABS: BUN/Creatinine Ratio 41 (6-26); Blood Urea Nitrogen 31 mg/dL (8-23); Calcium 8.4 mg/dL (8.6-10.3); Carbon Dioxide 31 mEq/L (23-29); Chloride 98 mEq/L (98-107); Glucose 213 mg/dL (70-105); Osmolality,Calculated 289 (280-300); Phosphorous 2.7 mg/dL (2.7-4.5); Potassium 4.7 mEq/L (3.5-5.1); Sodium 133 mEq/L (136-145); eGFR For African Americans > 60 (> 60); eGFR For Non-African Americans > 60 (> 60)
[2021-06-11] MEDS: *HR* Enoxaparin 120 MG/0.8 ML SYRINGE SQ SCH ×2 (05:29→17:49)
[2021-06-11] MEDS: Isosorbide MONOnitrate (24 HR) 30 MG TAB.ER.24H PO SCH (07:28)
[2021-06-11] MEDS: Aspirin 81 MG TAB.CHEW PO SCH (07:28)
[2021-06-11] MEDS: Levothyroxine Sodium 100 MCG VIAL IVP SCH (07:33)
[2021-06-11] MEDS: Furosemide 20 MG/2 ML VIAL IVP SCH (07:33)
[2021-06-11] MEDS: Pantoprazole 40 MG VIAL IVP SCH (07:33)
[2021-06-11] MEDS: Nystatin Cream 15 GM TUBE TP SCH ×2 (07:34→21:15)
[2021-06-11] MEDS: Insulin DETEMIR 100 UNIT/ML X5UNITS SUBQ SCH ×2 (07:34→21:07)
[2021-06-11] MEDS ORDERED: Morphine Sulfate Oral CONC 10 MG/0.5 ML ORAL.SYG SL PRN (08:00)
[2021-06-11] MEDS: Acetaminophen IV 1,000 MG/100 ML BAG IVPB SCH ×2 (12:21→18:49)
[2021-06-11] MEDS ORDERED: Dexmedetomidine HCl 400 MCG/100 ML MLS IVC ONE (13:10)
[2021-06-11] MEDS ORDERED: Dexmedetomidine HCl 400 MCG/100 ML MLS IVC SCH (13:15)
[2021-06-11] MEDS: Haloperidol Lactate 5 MG/ML VIAL IVP SCH ×3 (13:17→23:43)
[2021-06-11] MEDS ORDERED: 0.9 % Sodium Chloride 500 ML ONE (14:02)
[2021-06-11] MEDS ORDERED: 0.9 % Sodium Chloride 500 ML IVC ONE (14:02)
[2021-06-11] MEDS ORDERED: Albumin 25% 25gram/100mL 25 GM/100 ML IV.SOLN IVPB ONE (14:52)
[2021-06-11] MEDS ORDERED: 0.9 % Sodium Chloride 1,000 ML ONE (15:08)
[2021-06-11] MEDS ORDERED: 0.9 % Sodium Chloride 1,000 ML IV ONE (15:24)
[2021-06-11 16:29] LABS: C-Reactive Protein 34 mg/L (Less than 10)
[2021-06-11] MEDS ORDERED: Clinimix E 5%-15% SOLUTION 2,000 ML with MVI, adult with vitamin K 10 ML, ZN/CU/MN/SE... IVC SCH (17:00)
[2021-06-11] MEDS ORDERED: Ziprasidone 10 MG, Closed System Device IM Kit 1 EACH in Water for inj. (sterile) 0.5 ML IM PRN (21:21)
[2021-06-11] MEDS ORDERED: Ziprasidone 10 MG, Closed System Device IM Kit 1 EACH in Water for inj. (sterile) 0.5 ML IM ONE (21:21)
[2021-06-12] MEDS ORDERED: Morphine Sulfate 2 MG/ML SYRINGE IVP ONE ×3 (00:58→14:17)
[2021-06-12] MEDS: Insulin LISPRO 300 UNITS/3 ML VIAL SUBQ SCH ×6 (01:11→20:05)
[2021-06-12] MEDS: Acetaminophen IV 1,000 MG/100 ML BAG IVPB SCH ×5 (01:13→23:50)
[2021-06-12] MEDS: *HR* LORazepam 2 MG/ML VIAL IVP PRN ×3 (04:22→14:09)
[2021-06-12] MEDS: Haloperidol Lactate 5 MG/ML VIAL IVP SCH (05:44)
[2021-06-12 05:47] LABS: Eosinophils # 0.3 K/mcL (0.0-0.6); Eosinophils % 2.3 %; Hematocrit 30.7 % (35.3-44.9); Hemoglobin 9.6 g/dL (11.5-15.4); Immature Granulocytes % 0.7 % (0-4); Lymphocytes # 0.3 K/mcL (0.6-4.6); Lymphocytes % 2.2 %; Mean Corpuscular HGB Conc 31.3 g/dL (31.6-35.5); Mean Corpuscular Hemoglobin 31.5 pg (28.0-33.3); Mean Corpuscular Volume 100.7 fL (83.0-100.0); Mean Platelet Volume 12.7 fL (9.4-12.4); Monocytes # 0.3 K/mcL (0.0-1.3); Monocytes % 1.7 %; Neutrophils # 13.5 K/mcL (1.6-8.9); Platelet Count 137 K/mcL (140-400); Red Blood Count 3.05 M/mcL (3.82-4.97); Segmented Neutrophils % 93.1 %; White Blood Count 14.5 K/mcL (4.3-11.1)
[2021-06-12] MEDS: *HR* Enoxaparin 120 MG/0.8 ML SYRINGE SQ SCH ×2 (06:03→17:23)
[2021-06-12 06:06] LABS: BUN/Creatinine Ratio 40 (6-26); Blood Urea Nitrogen 33 mg/dL (8-23); Calcium 8.2 mg/dL (8.6-10.3); Carbon Dioxide 31 mEq/L (23-29); Chloride 100 mEq/L (98-107); Glucose 279 mg/dL (70-105); Magnesium 2.1 mg/dL (1.6-2.6); Osmolality,Calculated 295 (280-300); Phosphorous 3.7 mg/dL (2.7-4.5); Potassium 5.7 mEq/L (3.5-5.1); Sodium 134 mEq/L (136-145); eGFR For African Americans > 60 (> 60); eGFR For Non-African Americans > 60 (> 60)
[2021-06-12] MEDS: Aspirin 81 MG TAB.CHEW PO SCH (08:42)
[2021-06-12] MEDS: Isosorbide MONOnitrate (24 HR) 30 MG TAB.ER.24H PO SCH (08:42)
[2021-06-12] MEDS: Levothyroxine Sodium 100 MCG VIAL IVP SCH (09:03)
[2021-06-12] MEDS: Furosemide 20 MG/2 ML VIAL IVP SCH (09:04)
[2021-06-12] MEDS: Pantoprazole 40 MG VIAL IVP SCH (09:04)
[2021-06-12] MEDS: Insulin DETEMIR 100 UNIT/ML X5UNITS SUBQ SCH ×2 (09:09→20:04)
[2021-06-12] MEDS: Nystatin Cream 15 GM TUBE TP SCH (09:09)
[2021-06-12] MEDS ORDERED: Morphine Sulfate 2 MG/ML SYRINGE IVP SCH (12:00)
[2021-06-12] MEDS ORDERED: *HR* HYDROmorphone (PF) 1 MG/ML SYRINGE IM SCH (15:00)
[2021-06-12] MEDS: Morphine Sulfate 2 MG/ML SYRINGE IVP SCH ×2 (15:52→17:23)
[2021-06-12] MEDS ORDERED: *HR* HYDROmorphone (PF) 1 MG/ML SYRINGE IVP PRN (16:00)
[2021-06-12] MEDS ORDERED: Clinimix E 5%-15% SOLUTION 2,000 ML with MVI, adult with vitamin K 10 ML, ZN/CU/MN/SE... IVC SCH (17:00)
[2021-06-12] MEDS ORDERED: Clinimix 5%-20% SOLUTION 2,000 ML with MVI, adult with vitamin K 10 ML, Sodium Phosph... IVC SCH (17:00)
[2021-06-13] MEDS: Insulin LISPRO 300 UNITS/3 ML VIAL SUBQ SCH ×6 (00:07→20:47)
[2021-06-13] MEDS: Morphine Sulfate 2 MG/ML SYRINGE IVP SCH ×11 (00:45→15:06)
[2021-06-13] MEDS ORDERED: Ziprasidone 10 MG, Closed System Device IM Kit 1 EACH in Water for inj. (sterile) 0.5 ML IM ONE (04:45)
[2021-06-13] MEDS: Acetaminophen IV 1,000 MG/100 ML BAG IVPB SCH ×3 (05:17→20:43)
[2021-06-13 05:50] LABS: Basophils % 0.1 %; Eosinophils # 0.4 K/mcL (0.0-0.6); Eosinophils % 3.6 %; Hematocrit 30.7 % (35.3-44.9); Hemoglobin 9.3 g/dL (11.5-15.4); Immature Granulocytes % 0.5 % (0-4); Lymphocytes # 0.5 K/mcL (0.6-4.6); Mean Corpuscular HGB Conc 30.3 g/dL (31.6-35.5); Mean Corpuscular Hemoglobin 31.1 pg (28.0-33.3); Mean Corpuscular Volume 102.7 fL (83.0-100.0); Mean Platelet Volume 12.9 fL (9.4-12.4); Monocytes # 0.2 K/mcL (0.0-1.3); Monocytes % 1.5 %; Neutrophils # 11.2 K/mcL (1.6-8.9); Platelet Count 147 K/mcL (140-400); Red Blood Count 2.99 M/mcL (3.82-4.97); Segmented Neutrophils % 90.3 %; White Blood Count 12.4 K/mcL (4.3-11.1)
[2021-06-13 06:12] LABS: BUN/Creatinine Ratio 40 (6-26); Blood Urea Nitrogen 37 mg/dL (8-23); Calcium 8.4 mg/dL (8.6-10.3); Carbon Dioxide 36 mEq/L (23-29); Chloride 97 mEq/L (98-107); Glucose 250 mg/dL (70-105); Magnesium 2.3 mg/dL (1.6-2.6); Osmolality,Calculated 297 (280-300); Phosphorous 3.8 mg/dL (2.7-4.5); Potassium 4.9 mEq/L (3.5-5.1); Sodium 135 mEq/L (136-145); Triglycerides 185 mg/dL (< 150); eGFR For African Americans > 60 (> 60); eGFR For Non-African Americans > 60 (> 60)
[2021-06-13] MEDS: *HR* Enoxaparin 120 MG/0.8 ML SYRINGE SQ SCH ×2 (07:13→17:54)
[2021-06-13] MEDS: Nystatin Cream 15 GM TUBE TP SCH ×3 (07:14→20:48)
[2021-06-13] MEDS: Levothyroxine Sodium 100 MCG VIAL IVP SCH (07:45)
[2021-06-13] MEDS: Aspirin 81 MG TAB.CHEW PO SCH (07:46)
[2021-06-13] MEDS: Furosemide 20 MG/2 ML VIAL IVP SCH (07:46)
[2021-06-13] MEDS: Isosorbide MONOnitrate (24 HR) 30 MG TAB.ER.24H PO SCH (07:46)
[2021-06-13] MEDS: Pantoprazole 40 MG VIAL IVP SCH (07:46)
[2021-06-13] MEDS: Insulin DETEMIR 100 UNIT/ML X5UNITS SUBQ SCH ×2 (09:08→20:44)
[2021-06-13] MEDS: *HR* LORazepam 2 MG/ML VIAL IVP PRN ×2 (09:09→21:46)
[2021-06-13] MEDS ORDERED: Clinimix 5%-20% SOLUTION 2,000 ML with MVI, adult with vitamin K 10 ML, Sodium Phosph... IVC SCH ×2 (17:00)
[2021-06-13] MEDS ORDERED: Albumin 25% 25gram/100mL 25 GM/100 ML IV.SOLN IVPB ONE (17:21)
[2021-06-13] MEDS ORDERED: Furosemide 20 MG/2 ML VIAL IVP SCH (21:00)
[2021-06-13] MEDS: Morphine Sulfate 2 MG/ML SYRINGE IVP PRN ×2 (21:29→23:44)
[2021-06-13] MEDS: Ziprasidone 10 MG, Closed System Device IM Kit 1 EACH in Water for inj. (sterile) 0.5 ML IM PRN (22:44)
[2021-06-14] MEDS: Insulin LISPRO 300 UNITS/3 ML VIAL SUBQ SCH ×6 (00:16→19:54)
[2021-06-14] MEDS: *HR* HYDROmorphone (PF) 1 MG/ML SYRINGE IVP PRN ×2 (01:14→12:51)
[2021-06-14] MEDS: Acetaminophen IV 1,000 MG/100 ML BAG IVPB SCH ×4 (02:29→17:56)
[2021-06-14] MEDS: Morphine Sulfate 2 MG/ML SYRINGE IVP PRN ×5 (02:29→21:06)
[2021-06-14 05:53] LABS: Basophils % 0.1 %; Eosinophils # 0.2 K/mcL (0.0-0.6); Eosinophils % 1.8 %; Hematocrit 25.9 % (35.3-44.9); Hemoglobin 8.1 g/dL (11.5-15.4); Immature Granulocytes % 0.5 % (0-4); Lymphocytes # 0.3 K/mcL (0.6-4.6); Lymphocytes % 3.6 %; Mean Corpuscular HGB Conc 31.3 g/dL (31.6-35.5); Mean Corpuscular Volume 102.4 fL (83.0-100.0); Mean Platelet Volume 12.4 fL (9.4-12.4); Monocytes # 0.3 K/mcL (0.0-1.3); Neutrophils # 7.8 K/mcL (1.6-8.9); Platelet Count 157 K/mcL (140-400); Red Blood Count 2.53 M/mcL (3.82-4.97); Red Cell Distribution Width 13.9 % (11.5-14.5); White Blood Count 8.5 K/mcL (4.3-11.1)
[2021-06-14 05:55] LABS: Alanine Aminotransferase 21 Units/L (7-52); Albumin/Globulin Ratio 1.1 (1.1-2.2); Alkaline Phosphatase 125 Units/L (34-104); Aspartate Amino Transferase 21 Units/L (13-39); BUN/Creatinine Ratio 50 (6-26); Bilirubin,Total 0.6 mg/dL (0.3-1.0); Blood Urea Nitrogen 49 mg/dL (8-23); Calcium 8.5 mg/dL (8.6-10.3); Carbon Dioxide 36 mEq/L (23-29); Chloride 99 mEq/L (98-107); Globulin 2.8 g/dL (2.4-3.5); Glucose 208 mg/dL (70-105); Magnesium 2.3 mg/dL (1.6-2.6); Osmolality,Calculated 303 (280-300); Phosphorous 3.1 mg/dL (2.7-4.5); Potassium 4.8 mEq/L (3.5-5.1); Sodium 137 mEq/L (136-145); Total Protein 5.8 g/dL (6.4-8.9); eGFR For African Americans > 60 (> 60); eGFR For Non-African Americans 57 (> 60)
[2021-06-14] MEDS: *HR* Enoxaparin 120 MG/0.8 ML SYRINGE SQ SCH ×2 (07:04→16:52)
[2021-06-14] MEDS: Pantoprazole 40 MG VIAL IVP SCH (08:42)
[2021-06-14] MEDS: Levothyroxine Sodium 100 MCG VIAL IVP SCH (08:42)
[2021-06-14] MEDS: Aspirin 81 MG TAB.CHEW PO SCH (08:43)
[2021-06-14] MEDS: Insulin DETEMIR 100 UNIT/ML X5UNITS SUBQ SCH ×2 (08:43→19:55)
[2021-06-14] MEDS: Isosorbide MONOnitrate (24 HR) 30 MG TAB.ER.24H PO SCH (08:44)
[2021-06-14] MEDS: Nystatin Cream 15 GM TUBE TP SCH ×2 (08:44→19:55)
[2021-06-14] MEDS: *HR* LORazepam 2 MG/ML VIAL IVP PRN ×2 (11:34→20:49)
[2021-06-14] MEDS ORDERED: Clinimix 5%-20% SOLUTION 2,000 ML with MVI, adult with vitamin K 10 ML, Sodium Phosph... IVC SCH (17:00)
[2021-06-14] MEDS: Ziprasidone 10 MG, Closed System Device IM Kit 1 EACH in Water for inj. (sterile) 0.5 ML IM PRN (22:37)
[2021-06-15] MEDS: Acetaminophen IV 1,000 MG/100 ML BAG IVPB SCH ×4 (01:08→17:30)
[2021-06-15] MEDS: Insulin LISPRO 300 UNITS/3 ML VIAL SUBQ SCH ×6 (01:08→20:40)
[2021-06-15] MEDS: Morphine Sulfate 2 MG/ML SYRINGE IVP PRN ×3 (02:59→10:10)
[2021-06-15] MEDS: *HR* LORazepam 2 MG/ML VIAL IVP PRN ×6 (04:17→20:53)
[2021-06-15] MEDS: *HR* Enoxaparin 120 MG/0.8 ML SYRINGE SQ SCH ×2 (06:07→17:30)
[2021-06-15 07:13] LABS: BUN/Creatinine Ratio 51 (6-26); Blood Urea Nitrogen 38 mg/dL (8-23); Calcium 8.8 mg/dL (8.6-10.3); Carbon Dioxide 37 mEq/L (23-29); Chloride 99 mEq/L (98-107); Glucose 181 mg/dL (70-105); Osmolality,Calculated 298 (280-300); Phosphorous 2.3 mg/dL (2.7-4.5); Potassium 4.9 mEq/L (3.5-5.1); Sodium 137 mEq/L (136-145); eGFR For African Americans > 60 (> 60); eGFR For Non-African Americans > 60 (> 60)
[2021-06-15] MEDS: Ziprasidone 10 MG, Closed System Device IM Kit 1 EACH in Water for inj. (sterile) 0.5 ML IM PRN (07:57)
[2021-06-15] MEDS: Isosorbide MONOnitrate (24 HR) 30 MG TAB.ER.24H PO SCH (07:59)
[2021-06-15] MEDS: Aspirin 81 MG TAB.CHEW PO SCH (07:59)
[2021-06-15] MEDS: Insulin DETEMIR 100 UNIT/ML X5UNITS SUBQ SCH ×2 (09:58→20:41)
[2021-06-15] MEDS: Levothyroxine Sodium 100 MCG VIAL IVP SCH (09:58)
[2021-06-15] MEDS: Pantoprazole 40 MG VIAL IVP SCH (09:59)
[2021-06-15] MEDS: Nystatin Cream 15 GM TUBE TP SCH ×2 (09:59→22:19)
[2021-06-15] MEDS ORDERED: Clinimix 5%-20% SOLUTION 2,000 ML with MVI, adult with vitamin K 10 ML, Sodium Phosph... IVC SCH (17:00)
[2021-06-15] MEDS: Fat Emulsion 250 ML IVPB SCH (17:30)
[2021-06-16] MEDS: Insulin LISPRO 300 UNITS/3 ML VIAL SUBQ SCH ×6 (00:03→21:05)
[2021-06-16] MEDS: Acetaminophen IV 1,000 MG/100 ML BAG IVPB SCH ×3 (00:04→13:15)
[2021-06-16] MEDS: *HR* Enoxaparin 120 MG/0.8 ML SYRINGE SQ SCH ×2 (05:00→17:12)
[2021-06-16] MEDS: *HR* LORazepam 2 MG/ML VIAL IVP PRN ×4 (05:24→20:27)
[2021-06-16] MEDS: Morphine Sulfate 2 MG/ML SYRINGE IVP PRN (06:02)
[2021-06-16 06:05] LABS: Alanine Aminotransferase 21 Units/L (7-52); Albumin 2.9 g/dL (3.5-5.7); Albumin/Globulin Ratio 0.9 (1.1-2.2); Alkaline Phosphatase 122 Units/L (34-104); Aspartate Amino Transferase 18 Units/L (13-39); BUN/Creatinine Ratio 47 (6-26); Bilirubin,Total 0.6 mg/dL (0.3-1.0); Blood Urea Nitrogen 35 mg/dL (8-23); Calcium 8.6 mg/dL (8.6-10.3); Carbon Dioxide 39 mEq/L (23-29); Chloride 99 mEq/L (98-107); Globulin 3.1 g/dL (2.4-3.5); Glucose 256 mg/dL (70-105); Osmolality,Calculated 305 (280-300); Potassium 5.1 mEq/L (3.5-5.1); Sodium 139 mEq/L (136-145); eGFR For African Americans > 60 (> 60); eGFR For Non-African Americans > 60 (> 60)
[2021-06-16 06:06] LABS: Basophils % 0.1 %; Eosinophils # 0.6 K/mcL (0.0-0.6); Eosinophils % 7.9 %; Hematocrit 29.7 % (35.3-44.9); Immature Granulocytes % 0.5 % (0-4); Lymphocytes # 0.4 K/mcL (0.6-4.6); Lymphocytes % 4.9 %; Mean Corpuscular HGB Conc 30.3 g/dL (31.6-35.5); Mean Corpuscular Hemoglobin 31.9 pg (28.0-33.3); Mean Corpuscular Volume 105.3 fL (83.0-100.0); Mean Platelet Volume 12.4 fL (9.4-12.4); Monocytes # 0.3 K/mcL (0.0-1.3); Monocytes % 3.3 %; Neutrophils # 6.7 K/mcL (1.6-8.9); Platelet Count 190 K/mcL (140-400); Red Blood Count 2.82 M/mcL (3.82-4.97); Red Cell Distribution Width 14.4 % (11.5-14.5); Segmented Neutrophils % 83.3 %; White Blood Count 8.1 K/mcL (4.3-11.1)
[2021-06-16] MEDS: Levothyroxine Sodium 100 MCG VIAL IVP SCH (07:41)
[2021-06-16] MEDS: Pantoprazole 40 MG VIAL IVP SCH (07:42)
[2021-06-16] MEDS: Aspirin 81 MG TAB.CHEW PO SCH (07:52)
[2021-06-16] MEDS: Isosorbide MONOnitrate (24 HR) 30 MG TAB.ER.24H PO SCH (07:53)
[2021-06-16] MEDS: Insulin DETEMIR 100 UNIT/ML X5UNITS SUBQ SCH ×2 (07:53→21:04)
[2021-06-16] MEDS: *HR* HYDROmorphone (PF) 1 MG/ML SYRINGE IVP PRN (10:37)
[2021-06-16] MEDS: Nystatin Cream 15 GM TUBE TP SCH ×2 (10:45→21:33)
[2021-06-16] MEDS ORDERED: Clinimix 5%-20% SOLUTION 2,000 ML with MVI, adult with vitamin K 10 ML, Sodium Phosph... IVC SCH (17:00)
[2021-06-16] MEDS ORDERED: Fat Emulsion 250 ML IVPB SCH (17:00)
[2021-06-16] MEDS: Fat Emulsion 250 ML IVPB SCH (17:14)
[2021-06-16 21:57] LABS: Bilirubin,Urine Negative (Negative); Blood,Urine Trace-intact (Negative); Clarity,Urine Clear (Clear); Color,Urine Yellow (Yellow); Glucose,Urine (UA) >=1000 mg/dL (Normal); Ketones,Urine Negative (Negative); Leukocyte Esterase,Urine Negative (Negative); Nitrite,Urine Negative (Negative); PH,Urine 5.5 pH Units (5.0-8.0); Protein,Urine 30 mg/dL (Neg-Trace); Specific Gravity,Urine >= 1.030 (1.010-1.025); Urobilinogen,Urine Normal (Normal)
[2021-06-17] MEDS: Insulin LISPRO 300 UNITS/3 ML VIAL SUBQ SCH ×7 (00:34→23:25)
[2021-06-17] MEDS: *HR* Enoxaparin 120 MG/0.8 ML SYRINGE SQ SCH ×2 (05:35→17:24)
[2021-06-17 06:02] LABS: Basophils % 0.1 %; Eosinophils % 0.2 %; Hematocrit 31.4 % (35.3-44.9); Hemoglobin 8.9 g/dL (11.5-15.4); Immature Granulocytes % 0.9 % (0-4); Lymphocytes # 0.3 K/mcL (0.6-4.6); Mean Corpuscular HGB Conc 28.3 g/dL (31.6-35.5); Mean Corpuscular Hemoglobin 31.2 pg (28.0-33.3); Mean Corpuscular Volume 110.2 fL (83.0-100.0); Mean Platelet Volume 12.6 fL (9.4-12.4); Monocytes # 0.4 K/mcL (0.0-1.3); Monocytes % 4.1 %; Platelet Count 244 K/mcL (140-400); Red Blood Count 2.85 M/mcL (3.82-4.97); Red Cell Distribution Width 14.2 % (11.5-14.5); Segmented Neutrophils % 91.7 %; White Blood Count 10.3 K/mcL (4.3-11.1)
[2021-06-17 06:03] LABS: Neutrophils # 9.5 K/mcL (1.6-8.9)
[2021-06-17 06:30] LABS: Anisocytosis 1+ (Not Present); Hypochromasia Present (Not Present); Macrocytosis Present (Not Present); Platelet Estimate Normal (Normal)
[2021-06-17 06:34] LABS: Calcium 8.7 mg/dL (8.6-10.3); Magnesium 2.3 mg/dL (1.6-2.6); Phosphorous 7.6 mg/dL (2.7-4.5); Potassium 5.6 mEq/L (3.5-5.1)
[2021-06-17] MEDS: Isosorbide MONOnitrate (24 HR) 30 MG TAB.ER.24H PO SCH (07:26)
[2021-06-17] MEDS: Aspirin 81 MG TAB.CHEW PO SCH (07:26)
[2021-06-17] MEDS: Insulin DETEMIR 100 UNIT/ML X5UNITS SUBQ SCH ×3 (07:27→21:37)
[2021-06-17] MEDS: Levothyroxine Sodium 100 MCG VIAL IVP SCH (07:42)
[2021-06-17] MEDS: Pantoprazole 40 MG VIAL IVP SCH (07:43)
[2021-06-17] MEDS ORDERED: Insulin Human Regular 10 UNIT in 0.9 % Sodium Chloride 10 ML IV ONE ×2 (08:32→10:45)
[2021-06-17] MEDS: *HR* LORazepam 2 MG/ML VIAL IVP PRN ×4 (09:01→16:38)
[2021-06-17] MEDS: Nystatin Cream 15 GM TUBE TP SCH ×2 (09:05→20:16)
[2021-06-17] MEDS: Morphine Sulfate 2 MG/ML SYRINGE IVP PRN (14:18)
[2021-06-17 14:58] LABS: Potassium 4.3 mEq/L (3.5-5.1)
[2021-06-17] MEDS: Fat Emulsion 250 ML IVPB SCH (16:20)
[2021-06-17] MEDS ORDERED: Clinimix 5%-20% SOLUTION 2,000 ML with MVI, adult with vitamin K 10 ML, ZN/CU/MN/SE 1... IVC SCH (17:00)
[2021-06-17] MEDS: 0.9 % Sodium Chloride 1,000 ML IVC SCH (18:37)
[2021-06-17] MEDS ORDERED: *HR* LORazepam 2 MG/ML VIAL IVP ONE (19:59)
[2021-06-18] MEDS: Insulin LISPRO 300 UNITS/3 ML VIAL SUBQ SCH ×5 (04:39→20:12)
[2021-06-18] MEDS ORDERED: *HR* LORazepam 2 MG/ML VIAL IVP ONE (05:01)
[2021-06-18] MEDS: *HR* Enoxaparin 120 MG/0.8 ML SYRINGE SQ SCH ×2 (05:37→17:09)
[2021-06-18 05:54] LABS: Immature Granulocytes % 0.4 % (0-4); Red Cell Distribution Width 14.6 % (11.5-14.5)
[2021-06-18 05:57] LABS: Eosinophils # 0.3 K/mcL (0.0-0.6); Hematocrit 30.4 % (35.3-44.9); Lymphocytes # 0.3 K/mcL (0.6-4.6); Lymphocytes % 5.6 %; Mean Corpuscular Hemoglobin 32.4 pg (28.0-33.3); Mean Corpuscular Volume 140.7 fL (83.0-100.0); Mean Platelet Volume 12.5 fL (9.4-12.4); Monocytes # 0.2 K/mcL (0.0-1.3); Monocytes % 3.1 %; Neutrophils # 4.4 K/mcL (1.6-8.9); Nucleated Red Blood Cells 0.4 /100 WBC (0); Platelet Count 163 K/mcL (140-400); Red Blood Count 2.16 M/mcL (3.82-4.97); Segmented Neutrophils % 84.9 %; White Blood Count 5.2 K/mcL (4.3-11.1)
[2021-06-18 06:28] LABS: Platelet Estimate Normal (Normal)
[2021-06-18 07:01] LABS: Calcium 8.4 mg/dL (8.6-10.3); Magnesium 2.2 mg/dL (1.6-2.6); Phosphorous 3.9 mg/dL (2.7-4.5)
[2021-06-18] MEDS: Levothyroxine Sodium 100 MCG VIAL IVP SCH (07:55)
[2021-06-18] MEDS: Pantoprazole 40 MG VIAL IVP SCH (08:00)
[2021-06-18] MEDS: 0.9 % Sodium Chloride 1,000 ML IVC SCH (08:03)
[2021-06-18] MEDS: Nystatin Cream 15 GM TUBE TP SCH ×2 (08:03→20:13)
[2021-06-18] MEDS: Isosorbide MONOnitrate (24 HR) 30 MG TAB.ER.24H PO SCH (08:04)
[2021-06-18] MEDS: Aspirin 81 MG TAB.CHEW PO SCH (08:04)
[2021-06-18] MEDS: Insulin DETEMIR 100 UNIT/ML X5UNITS SUBQ SCH ×2 (08:08→20:11)
[2021-06-18] MEDS: *HR* LORazepam 2 MG/ML VIAL IVP PRN ×3 (11:06→18:19)
[2021-06-18] MEDS ORDERED: Furosemide 40 MG/4 ML VIAL IVP ONE (11:07)
[2021-06-18] MEDS ORDERED: Perflutren Lipid Microsphere 1.3 ML in 0.9 % Sodium Chloride 8.7 ML IVP PRN (11:08)
[2021-06-18 12:19] LABS: Hematocrit 28.1 % (35.3-44.9); Hemoglobin 8.4 g/dL (11.5-15.4)
[2021-06-18] MEDS ORDERED: Clinimix 5%-20% SOLUTION 2,000 ML with MVI, adult with vitamin K 10 ML, ZN/CU/MN/SE 1... IVC SCH (17:00)
[2021-06-18] MEDS: Fat Emulsion 250 ML IVPB SCH (17:10)
[2021-06-18 19:59] LABS: Bilirubin,Urine Negative (Negative); Blood,Urine Moderate (Negative); Clarity,Urine Cloudy (Clear); Color,Urine Yellow (Yellow); Glucose,Urine (UA) Normal (Normal); Ketones,Urine Negative (Negative); Leukocyte Esterase,Urine Negative (Negative); Nitrite,Urine Negative (Negative); PH,Urine 5.5 pH Units (5.0-8.0); Protein,Urine 30 mg/dL (Neg-Trace); Specific Gravity,Urine >= 1.030 (1.010-1.025); Urobilinogen,Urine Normal (Normal)
[2021-06-18 20:05] LABS: Amorphous Sediment,Urine Few per hpf (None-Few); Bacteria,Urine Few per hpf (None-Few); Budding Yeast,Urine Many per hpf (None Seen); Granular Casts,Urine Many per lpf (None Seen); Hyaline Casts,Urine Many per lpf (None Seen); Mucus,Urine Few per lpf (None-Few); RBC,Urine 15-30 per hpf (0-3); Squamous Epithelial Cell,Urine Few per hpf (None-Few); WBC,Urine 15-30 per hpf (0-3)
[2021-06-19] MEDS ORDERED: 0.9 % Sodium Chloride 500 ML IV ONE ×2 (00:38→06:38)
[2021-06-19] MEDS: Insulin LISPRO 300 UNITS/3 ML VIAL SUBQ SCH ×3 (00:46→07:34)
[2021-06-19] MEDS: *HR* Enoxaparin 120 MG/0.8 ML SYRINGE SQ SCH (05:15)
[2021-06-19 05:57] VITALS: PULSE 96; O2SAT 96
[2021-06-19 06:23] VITALS: BP 88/40
[2021-06-19 06:27] LABS: Calcium 8.3 mg/dL (8.6-10.3); Magnesium 2.2 mg/dL (1.6-2.6); Phosphorous 4.7 mg/dL (2.7-4.5); Potassium 4.8 mEq/L (3.5-5.1)
[2021-06-19] MEDS ORDERED: 0.9 % Sodium Chloride 1,000 ML IV ONE (06:28)
[2021-06-19] MEDS: Isosorbide MONOnitrate (24 HR) 30 MG TAB.ER.24H PO SCH (07:21)
[2021-06-19] MEDS: Aspirin 81 MG TAB.CHEW PO SCH (07:21)
[2021-06-19 07:33] VITALS: TEMP 99
[2021-06-19] MEDS: Pantoprazole 40 MG VIAL IVP SCH (07:33)
[2021-06-19] MEDS: Levothyroxine Sodium 100 MCG VIAL IVP SCH (07:33)
[2021-06-19] MEDS: Insulin DETEMIR 100 UNIT/ML X5UNITS SUBQ SCH (07:34)
[2021-06-19] MEDS: Nystatin Cream 15 GM TUBE TP SCH (07:35)
[2021-06-19] MEDS ORDERED: Clinimix 5%-20% SOLUTION 2,000 ML with MVI, adult with vitamin K 10 ML, ZN/CU/MN/SE 1... IVC SCH (17:00)
== END 2021-06-19 13:00 | disposition expired | DRG 177 ==
LOC: CDU 12:59 → EMEROOARM 12:59 → SUATTDRO 17:23 → CDU 17:45 → 3NENU 05-25 02:59 → 2NNU 05-27 19:20 → 2NENU 05-31 → 2NNU 06-11 10:14 → 3ANU 06-15 10:43
PROVIDERS: ADMIT Student in an Organized Health Care Education/Training Program; ATTEND Internal Medicine